=== PATIENT | female | born 1940 | race Caucasian/White ===

== ENCOUNTER → 2016-06-21 | Outpatient (CLI) | payer MEDICARE ==
[~2016-06-21] MED LIST: BETA-CAROTENE; BETA10003 PO; BROM500T2 PO; CALC600T21 PO; COPPER; COQ; DIGE1CAP2 PO; FISH1000; FOLI800T; GARLPOW; L-THEANINE; LIDO1OIN2 TOP; LISI5TAB; MAGN200T PO; MAGN250T; OXAZ15CA PO; OXAZ15CA2; PANTOTHENIC ACID; POTA540T PO; POTA99TA; PRO-BIOTIC; SELE100T6; SYST1SOL OU; VITA100C7; VITA100T17; VITA200016 PO; VITA500C24 PO; VITA50TA12; VITAMIN B COMPLE1; VITAMIN B6; VITAMIN D50000 UNT; VITAMIN E; [UNRECOGNIZED DRUG - OTHER]; [UNRECOGNIZED DRUG - OTHER]
--- NOTE | 2016-06-21 12:19 | REPMRS ---
Patient History The patient states she had a clinical breast exam in 06/2016. Patient has history of skin cancer at age 58. Family history of colorectal cancer in mother at age 62. Digital Woman Screen Mammo: June 21, 2016 - Exam #: [id number] Bilateral CC and MLO view(s) were taken. Technologist: Lea Kaminski, Technologist Prior study comparison: June 20, 2014, digital woman screen mammo performed at [facility]. June 19, 2013, digital woman screen mammo performed at [facility]. FINDINGS: The breast tissue is heterogeneously dense. This may lower the sensitivity of mammography. There has been no change in the appearance of the mammogram from the prior studies. There is a moderate amount of residual fibroglandular tissue which is fairly symmetric. There is no interval development of dominant mass, areas of architectural distortion, or clustered microcalcification typical of malignancy. ASSESSMENT: BI-RADS/ACR category 1 mammogram. Negative. Recommendation Routine screening mammogram in 1 year (for women over age 40). This mammogram was interpreted with the aid of an FDA-approved computer-aided dectection system. Electronically Signed By: Alton Farrell MD 06/21/16 [id number]
== END ==
LOC: M WHC 11:41
PROVIDERS: ATTEND Nurse Practitioner Women's Health
DX: Z01.419 Encounter for gynecological examination (general) (routine) without abnormal findings (principal); Z12.31 Encounter for screening mammogram for malignant neoplasm of breast; Z12.12 Encounter for screening for malignant neoplasm of rectum; Z80.0 Family history of malignant neoplasm of digestive organs
CPT/HCPCS: 82270; G0101; G0202

== ENCOUNTER → 2016-08-12 | Outpatient (CLI) | payer MEDICARE ==
--- NOTE | 2016-08-12 13:40 | REP ---
LUMBAR SPINE, FIVE VIEWS: HISTORY: Back pain. There is no acute fracture or subluxation. The lumbar intervertebral discs are decreased in height. Vacuum phenomenon is present at the L4-5 and L5-S1 levels. These findings are consistent with disc degeneration. Osteophytes are present in L2 through L5. There is narrowing of the L1-2 through L5-S1 facet joints. A laminectomy defect is present at the L4-5 level. The bony structure is osteopenic. IMPRESSION: Degenerative change as described above. Signed by Sohail Felipe MD 08/12/2016 01:44 P
== END ==
LOC: M SMT 12:00
PROVIDERS: ATTEND Family Medicine
DX: M25.78 Osteophyte, vertebrae (principal); M51.26 Other intervertebral disc displacement, lumbar region; M51.27 Other intervertebral disc displacement, lumbosacral region; W19.XXXA Unspecified fall, initial encounter; Y92.9 Unspecified place or not applicable; Y93.9 Activity, unspecified; Y99.8 Other external cause status; X58.XXXA Exposure to other specified factors, initial encounter
CPT/HCPCS: 72110; G0463

== ENCOUNTER → 2016-08-16 | Outpatient (REF) | payer MEDICARE | LOC: M SFHCPLAZ 08:45 | PROVIDERS: ATTEND Family Medicine | DX: S39.92XA Unspecified injury of lower back, initial encounter (principal); I11.9 Hypertensive heart disease without heart failure; E03.9 Hypothyroidism, unspecified; E78.2 Mixed hyperlipidemia; E55.9 Vitamin D deficiency, unspecified ==

== ENCOUNTER → 2016-08-16 | Outpatient (REF) | payer MEDICARE | LOC: M LAB REF 13:29 | PROVIDERS: ATTEND Orthopaedic Surgery | DX: M54.5 Low back pain (principal) ==

== ENCOUNTER → 2017-03-16 | Outpatient (REF) | payer MEDICARE ==
[~2017-03-16] MED LIST changes: -CALC600T21 PO; +CALC600T60 PO; -OXAZ15CA PO; +OXAZ15CA4 PO
[2017-03-16 20:35] LABS: MICROSCOPIC INDICATED? MAN YES (NO)
[2017-03-16 20:52] LABS: BACTERIA, URINE NONE SEEN; HYALINE CAST, URINE NONE SEEN /lpf (0-1); MICROSCOPIC EXAM PERFORMED; SQUAMOUS EPITHELIAL CELL URINE SMALL AMOUNT /hpf (SMALL AMT); TRANSITIONAL EPI CELLS, URINE SMALL AMOUNT /hpf
== END ==
LOC: M SFHCADAM 09:35
PROVIDERS: ATTEND Family Medicine
DX: R35.0 Frequency of micturition (principal)

== ENCOUNTER → 2017-03-22 | Outpatient (CLI) | payer MEDICARE ==
--- NOTE | 2017-03-22 14:38 | REP ---
THYROID ULTRASOUND: Real-time sonographic evaluation of thyroid performed. Right lobe measures 4.6 x 1.5 x 1.4 cm and left lobe 4.2 x 1.1 x 1.0 cm. In the right mid aspect is a hyperechoic nodular area which appears to have increased since prior studies measuring 1.2 x 0.9 x 0.8 cm. A complex cystic and solid nodule in the lower pole of the right lobe is essentially unchanged, measuring 1.1 x 0.6 x 0.8 cm. In the mid left lobe is a complex cystic and solid nodule which is unchanged 6 x 5 x 5 mm. IMPRESSION: Increased size of somewhat hyperechoic heterogeneous nodule mid right lobe when compared to prior studies. Maximum diameter 1.2 cm. Consider FNA. Right lower pole nodule and left mid lobe nodule are unchanged. Signed by Alton Farrell MD 03/23/2017 11:29 A
== END ==
LOC: M RAD 12:20
PROVIDERS: ATTEND Family Medicine
DX: E04.2 Nontoxic multinodular goiter (principal)

== ENCOUNTER → 2017-04-06 | Outpatient (CLI) | payer MEDICARE ==
[~2017-04-06] MED LIST changes: +ISOVUE-370 76% 100ML VIAL (Q9967) As Ordered ONE
--- NOTE | 2017-04-06 09:24 | REP ---
CT NECK WITH CONTRAST: HISTORY: Right thyroid nodule. CONTRAST: Isovue 370, 75 mL. The naso-, janie-, and hypopharynx, larynx and subglottic trachea are normal in appearance. The salivary glands are normal in size and density. An 8 mm hypodense nodule is present in the inferior right thyroid lobe. Small hypodensities 2-5 mm in size are present in the right and left thyroid lobes. The thyroid gland is normal in size. Small lymph nodes less than 1 cm in size are present in the internal jugular chains, posterior triangles, and submandibular areas. Atherosclerotic calcification is present at the right carotid bifurcation. Degenerative change is present in the cervical spine. The lung apices are clear. Postsurgical change is present in the nasal passage. Minimal mucosal thickening is present in the maxillary sinuses. IMPRESSION: There are several small hypodense nodules 2-8 mm in size in the thyroid gland. Signed by Sohail Felipe MD 04/06/2017 09:34 A
== END ==
LOC: M RAD 08:15
PROVIDERS: ATTEND Family Medicine
DX: E04.1 Nontoxic single thyroid nodule (principal)
CPT/HCPCS: 70491; Q9967

== ENCOUNTER → 2017-05-17 | Outpatient (REF) | payer MEDICARE | LOC: M LAB REF 09:26 | DX: E04.1 Nontoxic single thyroid nodule (principal) | CPT/HCPCS: 88313 ==

== ENCOUNTER → 2017-06-14 | Outpatient (REF) | payer MEDICARE ==
[2017-06-14 19:26] LABS: INR 0.94; PROTHROMBIN TIME 12.7 SECONDS (12.4-14.5)
[2017-06-14 19:27] LABS: PARTIAL THROMBOPLASTIN TIME 30.3 SECONDS (26.8-37.9)
[2017-06-14 19:32] LABS: ALBUMIN 4.1 GM/DL (3.2-5.2); ALBUMIN/GLOBULIN RATIO 1.41 (1.00-1.93); ALKALINE PHOSPHATASE 73 U/L (45-117); ALT/SGPT 25 U/L (12-78); ANION GAP 7 MEQ/L (8-16); AST/SGOT 17 U/L (7-37); BILIRUBIN,TOTAL 1.1 MG/DL (0.2-1.0); BLOOD UREA NITROGEN 21 MG/DL (7-18); CALCIUM LEVEL 9.2 MG/DL (8.8-10.2); CARBON DIOXIDE LEVEL 31 MEQ/L (21-32); CHLORIDE LEVEL 104 MEQ/L (98-107); CREATININE FOR GFR 0.79 MG/DL (0.55-1.30); GLOMERULAR FILTRATION RATE > 60.0 (>39); GLUCOSE, FASTING 97 MG/DL (70-100); POTASSIUM SERUM 4.1 MEQ/L (3.5-5.1); SODIUM LEVEL 142 MEQ/L (136-145)
[2017-06-14 19:41] LABS: HEMATOCRIT 47.6 % (36.0-47.0); MEAN CORPUSCULAR HEMOGLOBIN 29.4 pg (27.0-33.0); MEAN CORPUSCULAR HGB CONC 31.5 g/dl (32.0-36.5); MEAN CORPUSCULAR VOLUME 93.2 fl (80.0-96.0); PLATELET COUNT, AUTOMATED 205 10^3/uL (150-450); RED BLOOD COUNT 5.11 10^6/uL (4.00-5.40); RED CELL DISTRIBUTION WIDTH 13.4 % (11.5-14.5); WHITE BLOOD COUNT 6.3 10^3/uL (4.0-10.0)
== END ==
LOC: M SFHCADAM 11:26
DX: Z01.818 Encounter for other preprocedural examination (principal); E04.1 Nontoxic single thyroid nodule; I11.9 Hypertensive heart disease without heart failure
CPT/HCPCS: 80053

== ENCOUNTER → 2017-06-14 | Outpatient (CLI) | payer MEDICARE | LOC: M ADAMS 11:44 | DX: Z01.818 Encounter for other preprocedural examination (principal); I11.9 Hypertensive heart disease without heart failure; M85.88 Other specified disorders of bone density and structure, other site; M51.34 Other intervertebral disc degeneration, thoracic region; M51.36 Other intervertebral disc degeneration, lumbar region; E04.1 Nontoxic single thyroid nodule | CPT/HCPCS: 71046; 80053 ==

== ENCOUNTER → 2017-06-22 | Outpatient (CLI) | payer MEDICARE | LOC: M WHC 11:11 | DX: Z12.31 Encounter for screening mammogram for malignant neoplasm of breast (principal) | CPT/HCPCS: 77067 ==

== ENCOUNTER 2017-06-23 06:24 | Day surgery (SDC) | payer MEDICARE ==
[2017-06-23] MEDS ORDERED: LR 1,000 ML IV (06:45)
[2017-06-23] MEDS ORDERED: PROPOFOL 200 MG/20 ML VIAL As Ordered (07:07)
[2017-06-23] MEDS ORDERED: ROCURONIUM BROMIDE 50 MG/5 ML VIAL As Ordered (07:07)
[2017-06-23] MEDS ORDERED: LIDOCAINE 2% INJ 100 MG/5 ML SDV (FOR ANES.) As Ordered (07:07)
[2017-06-23] MEDS ORDERED: MIDAZOLAM INJ 2 MG/2 ML VIAL (J2250) As Ordered (07:08)
[2017-06-23] MEDS ORDERED: fentaNYL 250 MCG/5 ML INJECTION (J3010) As Ordered (07:08)
[2017-06-23] MEDS ORDERED: LIDOCAINE W/EPINEPHRINE 1% 20ML VIAL As Ordered (07:13)
[2017-06-23] MEDS ORDERED: HYDROmorphone HCL 2 MG/ML 1ML VIAL (J1170) As Ordered (07:55)
[2017-06-23] MEDS ORDERED: METOCLOPRAMIDE INJ 10MG/2ML VIAL (J2765) As Ordered (08:49)
[2017-06-23] MEDS ORDERED: ONDANSETRON 4MG/2ML VIAL (J2405) As Ordered (08:49)
[2017-06-23] MEDS ORDERED: diphenhydrAMINE INJ 50MG/ML VIAL (J1200) As Ordered (08:49)
[2017-06-23] MEDS ORDERED: KETOROLAC 60 MG/2 ML VIAL (J1885) As Ordered (08:55)
[2017-06-23] MEDS: BACITRACIN OINT 30GM As Ordered (09:08)
[2017-06-23] MEDS: LR 1,000 ML IV (09:45)
[2017-06-23] MEDS ORDERED: LABETALOL HCL 100 MG/20 ML VIAL As Ordered (09:59)
[2017-06-23] MEDS ORDERED: ACETAMINOPHEN 500 MG TAB PO (10:00)
[2017-06-23] MEDS ORDERED: ACETAMINOPHEN TAB 650MG DOSE (2X325MG) PO (10:00)
[2017-06-23] MEDS ORDERED: ONDANSETRON 4MG/2ML VIAL (J2405) IV (10:00)
[2017-06-23] MEDS ORDERED: IBUPROFEN 200 MG TAB PO (10:00)
[2017-06-23] MEDS ORDERED: HYDROmorphone HCL 1 MG/ML SYRINGE (J1170) IV (10:00)
[2017-06-23] MEDS: LABETALOL HCL 100 MG/20 ML VIAL IV ×2 (10:07→10:30)
== END 2017-06-24 15:44 | disposition home or self-care (01) ==
LOC: M SDC 06:24 → M MS4PR 14:08
DX: E04.1 Nontoxic single thyroid nodule (principal); I11.9 Hypertensive heart disease without heart failure; K29.70 Gastritis, unspecified, without bleeding; E78.2 Mixed hyperlipidemia; K20.9 Esophagitis, unspecified; E05.90 Thyrotoxicosis, unspecified without thyrotoxic crisis or storm; K21.9 Gastro-esophageal reflux disease without esophagitis; K58.9 Irritable bowel syndrome, unspecified; K76.0 Fatty (change of) liver, not elsewhere classified; M48.07 Spinal stenosis, lumbosacral region; E03.9 Hypothyroidism, unspecified; M12.9 Arthropathy, unspecified; F41.9 Anxiety disorder, unspecified; F43.10 Post-traumatic stress disorder, unspecified; Z88.1 Allergy status to other antibiotic agents; Z88.2 Allergy status to sulfonamides; Z88.5 Allergy status to narcotic agent; Z88.4 Allergy status to anesthetic agent; Z88.8 Allergy status to other drugs, medicaments and biological substances; Z91.018 Allergy to other foods; Z91.040 Latex allergy status; Z91.048 Other nonmedicinal substance allergy status; Z79.899 Other long term (current) drug therapy; Z86.718 Personal history of other venous thrombosis and embolism; Z96.1 Presence of intraocular lens; Z90.710 Acquired absence of both cervix and uterus; Z87.442 Personal history of urinary calculi; Z78.0 Asymptomatic menopausal state; Z85.828 Personal history of other malignant neoplasm of skin
CPT/HCPCS: 60220

== ENCOUNTER → 2017-07-07 | Outpatient (REF) | payer MEDICARE ==
[2017-07-07 13:42] LABS: ANION GAP 7 MEQ/L (8-16); BLOOD UREA NITROGEN 21 MG/DL (7-18); CALCIUM LEVEL 8.8 MG/DL (8.8-10.2); CARBON DIOXIDE LEVEL 32 MEQ/L (21-32); CHLORIDE LEVEL 104 MEQ/L (98-107); FREE T4 0.83 NG/DL (0.76-1.46); GLOMERULAR FILTRATION RATE > 60.0 (>39); GLUCOSE, FASTING 79 MG/DL (70-100); POTASSIUM SERUM 3.8 MEQ/L (3.5-5.1); SODIUM LEVEL 143 MEQ/L (136-145)
== END ==
LOC: M LABDRAW1 11:52
DX: E04.2 Nontoxic multinodular goiter (principal); I11.9 Hypertensive heart disease without heart failure
CPT/HCPCS: 84443

== ENCOUNTER → 2017-08-22 | Outpatient (CLI) | payer MEDICARE ==
[2017-08-22 18:26] LABS: FREE T4 0.77 NG/DL (0.76-1.46)
== END ==
LOC: M SMT 14:33
DX: E03.9 Hypothyroidism, unspecified (principal)
CPT/HCPCS: 84443

== ENCOUNTER 2017-09-30 08:42 | Day surgery (SDC) | payer MEDICARE ==
[~2017-09-30 08:42] MED LIST changes: -BETA-CAROTENE; -BETA10003 PO; -BROM500T2 PO; -CALC600T60 PO; -COPPER; -COQ; -DIGE1CAP2 PO; -FISH1000; -FOLI800T; -GARLPOW; -ISOVUE-370 76% 100ML VIAL (Q9967) As Ordered ONE; -L-THEANINE; -LIDO1OIN2 TOP; -LISI5TAB; -MAGN200T PO; -MAGN250T; -OXAZ15CA2; -OXAZ15CA4 PO; -PANTOTHENIC ACID; -POTA540T PO; -POTA99TA; -PRO-BIOTIC; +PROPOFOL 500 MG/50 ML VIAL As Ordered; -SELE100T6; -SYST1SOL OU; -VITA100C7; -VITA100T17; -VITA200016 PO; -VITA500C24 PO; -VITA50TA12; -VITAMIN B COMPLE1; -VITAMIN B6; -VITAMIN D50000 UNT; -VITAMIN E; -[UNRECOGNIZED DRUG - OTHER]; -[UNRECOGNIZED DRUG - OTHER]
[2017-09-30] MEDS ORDERED: LIDOCAINE 2% INJ 100 MG/5 ML SDV (FOR ANES.) As Ordered (08:57)
[2017-09-30] MEDS: NS 1,000 ML IV (09:00)
[2017-09-30] MEDS ORDERED: hydrALAZINE INJ 20 MG/ML VIAL As Ordered (10:05)
== END 2017-09-30 11:05 | disposition home or self-care (01) ==
LOC: M OPP 08:42
DX: Z12.11 Encounter for screening for malignant neoplasm of colon (principal); K64.8 Other hemorrhoids; K57.30 Diverticulosis of large intestine without perforation or abscess without bleeding; Z86.010 Personal history of colon polyps; K22.70 Barrett's esophagus without dysplasia; K29.70 Gastritis, unspecified, without bleeding; R12 Heartburn; E03.9 Hypothyroidism, unspecified; K76.0 Fatty (change of) liver, not elsewhere classified; R03.0 Elevated blood-pressure reading, without diagnosis of hypertension; M48.061 Spinal stenosis, lumbar region without neurogenic claudication; K74.60 Unspecified cirrhosis of liver; F41.9 Anxiety disorder, unspecified; E78.00 Pure hypercholesterolemia, unspecified; Z88.0 Allergy status to penicillin; Z88.5 Allergy status to narcotic agent; Z88.8 Allergy status to other drugs, medicaments and biological substances; Z91.048 Other nonmedicinal substance allergy status; Z91.041 Radiographic dye allergy status; Z86.718 Personal history of other venous thrombosis and embolism; Z85.828 Personal history of other malignant neoplasm of skin
CPT/HCPCS: G0105

== ENCOUNTER → 2017-10-17 | Outpatient (CLI) | payer MEDICARE ==
[2017-10-17 13:45] LABS: FREE T4 0.81 NG/DL (0.76-1.46)
== END ==
LOC: M SMT 10:37
DX: E03.9 Hypothyroidism, unspecified (principal)
CPT/HCPCS: 84443

== ENCOUNTER → 2017-10-21 | Outpatient (CLI) | payer MEDICARE | LOC: M ADAMS 15:51 | DX: T18.108A Unspecified foreign body in esophagus causing other injury, initial encounter (principal) | CPT/HCPCS: 74018 ==

== ENCOUNTER → 2017-11-11 | Outpatient (CLI) | payer MEDICARE | LOC: M SMT 14:04 | DX: T18.2XXD Foreign body in stomach, subsequent encounter (principal) | CPT/HCPCS: 74019 ==

== ENCOUNTER → 2018-01-20 | Outpatient (CLI) | payer MEDICARE ==
[2018-01-20 19:54] LABS: FREE T4 1.02 NG/DL (0.76-1.46)
== END ==
LOC: M SMT 15:13
DX: E03.9 Hypothyroidism, unspecified (principal)
CPT/HCPCS: 84443

== ENCOUNTER → 2018-03-22 | Outpatient (CLI) | payer MEDICARE ==
[2018-03-22 13:35] LABS: HEMATOCRIT 46.7 % (36.0-47.0); MEAN CORPUSCULAR HEMOGLOBIN 29.7 pg (27.0-33.0); MEAN CORPUSCULAR HGB CONC 32.1 g/dl (32.0-36.5); MEAN CORPUSCULAR VOLUME 92.5 fl (80.0-96.0); PLATELET COUNT, AUTOMATED 222 10^3/uL (150-450); RED BLOOD COUNT 5.05 10^6/uL (4.00-5.40); RED CELL DISTRIBUTION WIDTH 14.3 % (11.5-14.5); WHITE BLOOD COUNT 6.5 10^3/uL (4.0-10.0)
[2018-03-22 13:41] LABS: ALBUMIN 3.7 GM/DL (3.2-5.2); ALBUMIN/GLOBULIN RATIO 1.16 (1.00-1.93); ALKALINE PHOSPHATASE 73 U/L (45-117); ALT/SGPT 22 U/L (12-78); ANION GAP 6 MEQ/L (8-16); AST/SGOT 19 U/L (7-37); BILIRUBIN,TOTAL 1.4 MG/DL (0.2-1.0); BLOOD UREA NITROGEN 22 MG/DL (7-18); CALCIUM LEVEL 8.9 MG/DL (8.8-10.2); CARBON DIOXIDE LEVEL 32 MEQ/L (21-32); CHLORIDE LEVEL 103 MEQ/L (98-107); CHOLESTEROL LEVEL 238 MG/DL (<200); CHOLESTEROL RISK RATIO 3.606 (<5); CREATININE FOR GFR 0.87 MG/DL (0.55-1.30); FREE T4 0.98 NG/DL (0.76-1.46); GLOMERULAR FILTRATION RATE > 60.0 (>32); GLUCOSE, FASTING 87 MG/DL (70-100); HDL CHOLESTEROL 66 MG/DL (>40); LDL CHOLESTEROL 148 MG/DL (<100); NON-HDL-C 172 MG/DL; POTASSIUM SERUM 4.3 MEQ/L (3.5-5.1); SODIUM LEVEL 141 MEQ/L (136-145); TOTAL PROTEIN 6.9 GM/DL (6.4-8.2); TRIGLYCERIDES LEVEL 121 MG/DL (<150)
[2018-03-22 14:01] LABS: TOTAL 25(OH) VITAMIN D 73.6 NG/ML (30.0-100.0)
== END ==
LOC: M SMT 09:34
DX: F41.9 Anxiety disorder, unspecified (principal); E11.9 Type 2 diabetes mellitus without complications; M81.0 Age-related osteoporosis without current pathological fracture
CPT/HCPCS: 84443

== ENCOUNTER → 2018-04-25 | Outpatient (REF) | payer MEDICARE ==
[~2018-04-25] MED LIST changes: +ACET500T15 PO; +ACID1CAP PO; +BETA-CAROTENE; +BETA10003 PO; +BROM500T2 PO; +CALC500T49 PO; +CALC600T60 PO; +CALCTAB93; +CALCTAB93 PO; +COPPER; +COQ; +DIGE1CAP2 PO; +FISH1000; +FOLI800T; +GARLPOW; +GRAP100C PO; +IBUP200C25 PO; +L-THEANINE; +LIDO1OIN2 TOP; +LISI5TAB; +MAGN1TAB25 PO; +MAGN200T PO; +MAGN250T; +OXAZ15CA2; +OXAZ15CA4 PO; +PANTOTHENIC ACID; +POTA540T PO; +POTA99TA; +PRO-BIOTIC; -PROPOFOL 500 MG/50 ML VIAL As Ordered; +SELE100T6; +SYST1SOL OU; +VITA100C7; +VITA100T17; +VITA200016 PO; +VITA500C24 PO; +VITA50TA12; +VITAMIN B COMPLE1; +VITAMIN B6; +VITAMIN D50000 UNT; +VITAMIN E; +VITAPOW PB; +[UNRECOGNIZED DRUG - CODE] PO; +[UNRECOGNIZED DRUG - OTHER]; +[UNRECOGNIZED DRUG - OTHER]; +[UNRECOGNIZED DRUG - OTHER]
[2018-04-25 13:42] LABS: CORTISOL AM 19.6 UG/DL (4.3-22.4); FREE T3 2.5 PG/ML (2.2-4.0); FREE T4 0.95 NG/DL (0.76-1.46); THYROID STIMULATING HORMONE 5.01 uIU/ML (0.358-3.740)
[2018-05-01 08:06] LABS: T3 REVERSE 16.7 ng/dL (9.2-24.1)
== END ==
LOC: M SFHCADAM 08:53
PROVIDERS: ATTEND Family Medicine
DX: E03.9 Hypothyroidism, unspecified (principal); L65.9 Nonscarring hair loss, unspecified
CPT/HCPCS: 82533; 84439; 84443; 84481; 84482; 84630; G0463

== ENCOUNTER → 2018-05-20 | Outpatient (CLI) | payer MEDICARE ==
--- NOTE | 2018-05-20 20:09 | REP ---
Left tib-fib series: Four views. History: Left lower leg contusion. Findings: Four views of the left tibia and fibula demonstrate normal bones, joints, and soft tissues. No fracture or subluxation is seen. Impression: Negative left tib fib radiographs. Electronically Signed by Kalen Nash MD 05/20/2018 08:00 P
== END ==
LOC: M WUC 17:04
PROVIDERS: ATTEND Physician Assistant
DX: S80.12XA Contusion of left lower leg, initial encounter (principal); Y92.89 Other specified places as the place of occurrence of the external cause; Y93.89 Activity, other specified; X58.XXXA Exposure to other specified factors, initial encounter; Y99.8 Other external cause status

== ENCOUNTER → 2018-07-06 | Outpatient (CLI) | payer MEDICARE ==
[2018-07-06 18:46] LABS: THYROID STIMULATING HORMONE 2.27 uIU/ML (0.358-3.740)
== END ==
LOC: M SMT 14:16
PROVIDERS: ATTEND Family Medicine
DX: E03.9 Hypothyroidism, unspecified (principal)

== ENCOUNTER → 2018-08-14 | Outpatient (CLI) | payer MEDICARE ==
[~2018-08-14] MED LIST changes: -MAGN1TAB25 PO; +MAGN1TAB26 PO
[2018-08-14 14:06] LABS: BLOOD UREA NITROGEN 19 MG/DL (7-18); CREATININE FOR GFR 0.91 MG/DL (0.55-1.30); GLOMERULAR FILTRATION RATE > 60.0 (>32)
== END ==
LOC: M SMT 11:32
PROVIDERS: ATTEND Surgery
DX: R07.89 Other chest pain (principal)

== ENCOUNTER → 2018-08-16 | Outpatient (CLI) | payer MEDICARE ==
[~2018-08-16] MED LIST changes: +ISOVUE-370 76% 100ML VIAL (Q9967) As Ordered ONE
--- NOTE | 2018-08-17 08:10 | REP ---
CT of the chest with IV contrast, CT pulmonary angiography protocol: The patient has an allergy and was premedicated with Benadryl. Comparison is 05/03/2016. There are no emboli in the pulmonary trunk or central pulmonary arteries. There are no emboli in the pulmonary lobe or segment branches. There are no infiltrates. There are no pleural effusions. There are no masses or nodules. There is no mediastinal, hilar or axillary lymph node enlargement. The thoracic aorta is unremarkable. Cardiac size is normal. There is no pericardial effusion. The visualized upper abdominal contents are unremarkable except for surgical clips in the gallbladder fossa. Impression: There are no pulmonary emboli. Cholecystectomy. Otherwise, essentially negative CT study of the chest. Electronically Signed by Alton Hood MD 08/17/2018 08:02 A
== END ==
LOC: M RAD 15:39
PROVIDERS: ATTEND Surgery
DX: R07.89 Other chest pain (principal); Z90.49 Acquired absence of other specified parts of digestive tract
CPT/HCPCS: 71260; Q9967

== ENCOUNTER → 2018-10-23 | Outpatient (CLI) | payer MEDICARE ==
[~2018-10-23] MED LIST changes: -ISOVUE-370 76% 100ML VIAL (Q9967) As Ordered ONE
[2018-10-23 13:46] LABS: HEMATOCRIT 47.3 % (36.0-47.0); MEAN CORPUSCULAR HEMOGLOBIN 30.7 pg (27.0-33.0); MEAN CORPUSCULAR HGB CONC 31.7 g/dl (32.0-36.5); MEAN CORPUSCULAR VOLUME 96.7 fl (80.0-96.0); PLATELET COUNT, AUTOMATED 213 10^3/uL (150-450); RED BLOOD COUNT 4.89 10^6/uL (4.00-5.40); WHITE BLOOD COUNT 6.2 10^3/uL (4.0-10.0)
[2018-10-23 13:54] LABS: ALBUMIN 3.7 GM/DL (3.2-5.2); ALT/SGPT 26 U/L (12-78); BILIRUBIN,TOTAL 0.9 MG/DL (0.2-1.0); BLOOD UREA NITROGEN 20 MG/DL (7-18); CALCIUM LEVEL 9.2 MG/DL (8.8-10.2); CARBON DIOXIDE LEVEL 32 MEQ/L (21-32); CHLORIDE LEVEL 106 MEQ/L (98-107); CHOLESTEROL LEVEL 222 MG/DL (<200); CHOLESTEROL RISK RATIO 3.171 (<5); CREATININE FOR GFR 0.95 MG/DL (0.55-1.30); FREE T4 0.87 NG/DL (0.76-1.46); GLOMERULAR FILTRATION RATE > 60.0 (>32); GLUCOSE, FASTING 83 MG/DL (70-100); HDL CHOLESTEROL 70 MG/DL (>40); LDL CHOLESTEROL 129 MG/DL (<100); MAGNESIUM LEVEL 2.4 MG/DL (1.8-2.4); NON-HDL-C 152 MG/DL; POTASSIUM SERUM 4.5 MEQ/L (3.5-5.1); SODIUM LEVEL 143 MEQ/L (136-145); TOTAL PROTEIN 6.7 GM/DL (6.4-8.2); TRIGLYCERIDES LEVEL 117 MG/DL (<150)
== END ==
LOC: M SMT 08:35
PROVIDERS: ATTEND Family Medicine
DX: I11.9 Hypertensive heart disease without heart failure (principal); K21.9 Gastro-esophageal reflux disease without esophagitis; E03.9 Hypothyroidism, unspecified; E78.2 Mixed hyperlipidemia

== ENCOUNTER → 2019-01-07 | Outpatient (CLI) | payer MEDICARE ==
--- NOTE | 2019-01-11 10:31 | SLEEPCENT ---
DATE OF STUDY: 01/07/2019 ORDERED BY: Mindy Carpio Nocturnal polysomnography was performed for evaluation of sleep physiology in this patient with a history of excessive somnolence and nonrestorative sleep. 7 hours and 40 minutes of data were reviewed. There were 330 minutes of sleep identified. Sleep latency was mildly prolonged at 33 minutes. Rapid eye movement (REM) latency was prolonged at 180 minutes. Sleep architecture was fairly good. There were 3 REM cycles. Overall sleep efficiency was 72.7%. The patient's electrocardiogram showed a sinus rhythm with small complexes and average heart rate of 60 beats per minute. Electroencephalogram (EEG) showed normal waveforms for awake and sleep. There were only 7 respiratory events identified of 10 seconds in duration or greater for an apnea-hypopnea index within normal limits at 1.3. Arousals from respiratory events when arousals from snoring were included occurred 1.5 times per hour with some limb activity. Limb movement arousal index was borderline at 5.1. There were no oxygen desaturations below 90%. Snoring was noted throughout the study. IMPRESSION: Normal nocturnal polysomnography with snoring.
== END ==
LOC: M SLEEP 20:00
PROVIDERS: ATTEND Nurse Practitioner Family
DX: R06.83 Snoring (principal)

== ENCOUNTER → 2019-03-14 | Outpatient (CLI) | payer MEDICARE ==
[2019-03-14 13:52] LABS: HEMATOCRIT 47.8 % (36.0-47.0); MEAN CORPUSCULAR HEMOGLOBIN 30.5 pg (27.0-33.0); MEAN CORPUSCULAR HGB CONC 31.4 g/dl (32.0-36.5); MEAN CORPUSCULAR VOLUME 97.4 fl (80.0-96.0); PLATELET COUNT, AUTOMATED 222 10^3/uL (150-450); RED BLOOD COUNT 4.91 10^6/uL (4.00-5.40); WHITE BLOOD COUNT 6.1 10^3/uL (4.0-10.0)
[2019-03-14 14:08] LABS: ALBUMIN 3.7 GM/DL (3.2-5.2); ALT/SGPT 24 U/L (12-78); BLOOD UREA NITROGEN 17 MG/DL (7-18); CALCIUM LEVEL 9.1 MG/DL (8.8-10.2); CARBON DIOXIDE LEVEL 32 MEQ/L (21-32); CHLORIDE LEVEL 104 MEQ/L (98-107); CHOLESTEROL LEVEL 199 MG/DL (<200); CHOLESTEROL RISK RATIO 2.926 (<5); CREATININE FOR GFR 0.88 MG/DL (0.55-1.30); FREE T4 0.88 NG/DL (0.76-1.46); GLOMERULAR FILTRATION RATE > 60.0 (>32); GLUCOSE, FASTING 88 MG/DL (70-100); HDL CHOLESTEROL 68 MG/DL (>40); LDL CHOLESTEROL 114 MG/DL (<100); NON-HDL-C 131 MG/DL; POTASSIUM SERUM 4.6 MEQ/L (3.5-5.1); SODIUM LEVEL 141 MEQ/L (136-145); TOTAL PROTEIN 6.6 GM/DL (6.4-8.2); TRIGLYCERIDES LEVEL 83 MG/DL (<150)
== END ==
LOC: M SMT 08:07
PROVIDERS: ATTEND Family Medicine
DX: I11.9 Hypertensive heart disease without heart failure (principal); E03.9 Hypothyroidism, unspecified; E78.2 Mixed hyperlipidemia; K21.9 Gastro-esophageal reflux disease without esophagitis

== ENCOUNTER 2019-06-22 15:30 | Emergency (ER) | payer MEDICARE ==
[~2019-06-22] VITALS: Ht 154.9 cm; Wt 48.6 kg
--- NOTE | 2019-06-22 16:03 | REP ---
CT brain without contrast: History: Dizziness. Trauma. No comparison brain CT. 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 No intraorbital abnormality is seen. Bony calvarium is intact. No skull fractures seen. No significant scalp hematoma is appreciated. There is mild vascular calcification in the distal internal carotids. On soft tissue window settings, there is mild generalized atrophy. Periventricular white matter low density is seen consistent with small vessel atherosclerotic change. There is no evidence of intracranial hemorrhage. No extra-axial fluid collection is seen. No mass, infarct, or midline shift is seen. Impression: Mild diffuse atrophy and vascular calcification. Small vessel changes. No acute intracranial abnormality. Electronically Signed by Kalen Nash MD 06/22/2019 03:54 P
[2019-06-22] MEDS ORDERED: LABETALOL HCL 100 MG/20 ML VIAL IV STA (16:26)
[2019-06-22 17:06] VITALS: BP 194/118
[2019-06-22 17:15] LABS: BASO # 0.1 10^3/uL (0.0-0.2); BASO % 0.9 % (0.0-1.0); EOS # 0.2 10^3/uL (0.0-0.5); EOS % 2.8 % (0.0-3.0); HEMATOCRIT 43.6 % (36.0-47.0); HEMOGLOBIN 14.3 g/dl (12.0-15.5); LYMPH # 1.6 10^3/uL (1.5-5.0); LYMPH % 23.9 % (24.0-44.0); MEAN CORPUSCULAR HEMOGLOBIN 31.1 pg (27.0-33.0); MEAN CORPUSCULAR HGB CONC 32.8 g/dl (32.0-36.5); MEAN CORPUSCULAR VOLUME 94.8 fl (80.0-96.0); MONO # 0.6 10^3/uL (0.0-0.8); MONO % 9.3 % (0.0-5.0); NEUTROPHILS # 4.3 10^3/uL (1.5-8.5); NEUTROPHILS % 62.8 % (36.0-66.0); PLATELET COUNT, AUTOMATED 208 10^3/uL (150-450); WHITE BLOOD COUNT 6.9 10^3/uL (4.0-10.0)
[2019-06-22] MEDS ORDERED: LEVO50TA5 PO (17:22)
[2019-06-22] MEDS ORDERED: LIDO5OIN19 (17:22)
[2019-06-22 17:51] LABS: BLOOD UREA NITROGEN 18 MG/DL (7-18); CALCIUM LEVEL 9.3 MG/DL (8.8-10.2); CARBON DIOXIDE LEVEL 30 MEQ/L (21-32); CHLORIDE LEVEL 103 MEQ/L (98-107); CK-MB VALUE MASS 1.3 NG/ML (<3.6); CPK CREATINE PHOSPHOKINASE 80 U/L (26-192); CREATININE FOR GFR 0.84 MG/DL (0.55-1.30); ETHYL ALCOHOL (ETHANOL) < 0.003 % (0.000-0.010); GLOMERULAR FILTRATION RATE > 60.0 (>32); GLUCOSE, FASTING 94 MG/DL (70-100); MAGNESIUM LEVEL 2.1 MG/DL (1.8-2.4); MB/CK RELATIVE INDEX 1.62 (< OR =4); POTASSIUM SERUM 4.2 MEQ/L (3.5-5.1); SODIUM LEVEL 143 MEQ/L (136-145); TROPONIN I < 0.02 NG/ML (< 0.10)
[2019-06-22 18:00] LABS: INR 1.07; PROTHROMBIN TIME 13.6 SECONDS (11.8-14.0)
[2019-06-22 18:06] LABS: AMPHETAMINES LEVEL URINE NEGATIVE (NEGATIVE); BARBITURATES URINE NEGATIVE (NEGATIVE); BENZODIAZEPINES URINE NEGATIVE (NEGATIVE); CANNABINOIDS URINE NEGATIVE (NEGATIVE); COCAINE METABOLITE URINE NEGATIVE (NEGATIVE); METHADONE URINE NEGATIVE (NEGATIVE); OPIATES URINE NEGATIVE (NEGATIVE); PHENCYCLIDINE URINE NEGATIVE (NEGATIVE)
--- NOTE | 2019-06-22 18:18 | ECGEPIP ---
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
[2019-06-22 18:25] VITALS: BP 150/94
[2019-06-22] MEDS ORDERED: MECL1TAB31 PO (18:26)
== END 2019-06-22 18:42 | disposition home or self-care (01) ==
LOC: M ED 15:30
DX: R42 Dizziness and giddiness (principal); R00.1 Bradycardia, unspecified; R19.7 Diarrhea, unspecified; E11.9 Type 2 diabetes mellitus without complications; K21.9 Gastro-esophageal reflux disease without esophagitis; K76.0 Fatty (change of) liver, not elsewhere classified; Z85.828 Personal history of other malignant neoplasm of skin; Z88.0 Allergy status to penicillin; Z88.1 Allergy status to other antibiotic agents; Z88.5 Allergy status to narcotic agent; Z88.8 Allergy status to other drugs, medicaments and biological substances; Z91.041 Radiographic dye allergy status; Z79.899 Other long term (current) drug therapy
CPT/HCPCS: 70450; 80048; 80307; 81001; 82550; 82553; 83735; 84439; 84443; 84484; 85025; 85610; 93005; 93041; 94760; 96374; 99285; G0480

== ENCOUNTER → 2019-06-26 | Outpatient (REF) | payer MEDICARE ==
[~2019-06-26] MED LIST changes: +LEVO50TA5 PO; +LIDO5OIN19; +MECL1TAB31 PO
[2019-06-26 19:24] LABS: FOLATE 15.8 NG/ML (>5.4)
== END ==
LOC: M SFHCADAM 15:21
PROVIDERS: ATTEND Family Medicine
DX: R42 Dizziness and giddiness (principal)

== ENCOUNTER → 2019-07-23 | Outpatient (CLI) | payer MEDICARE ==
--- NOTE | 2019-07-23 12:27 | REPMRS ---
Patient History The patient states she had a clinical breast exam in 07/2019. Patient has history of skin cancer starting at age 68. Family history of colorectal cancer at age 62 in mother. 3D TOMOSYNTHESIS WAS PERFORMED. [facility] Digital Woman Screen Mammo: July 23, 2019 - Exam #: [id number] Bilateral CC and MLO view(s) were taken. Technologist: Lea Kaminski, Technologist Prior study comparison: June 22, 2017, digital woman screen mammo performed at [facility]. March 09, 2017, left breast digital mammo diagnostic unilateral, performed at [facility]. FINDINGS: The breast tissue is heterogeneously dense. This may lower the sensitivity of mammography. There has been no change in the appearance of the mammogram from the prior studies. There is a moderate amount of residual fibroglandular tissue which is fairly symmetric. There is no interval development of dominant mass, areas of architectural distortion, or clustered microcalcification typical of malignancy. Assessment: BI-RADS/ACR category 1 mammogram. Negative Mammogram. Recommendation Routine screening mammogram in 1 year (for women over age 40). This mammogram was interpreted with the aid of an FDA-approved computer-aided dectection system. Electronically Signed By: Alton Farrell MD 07/23/19 [id number]
== END ==
LOC: M WHC 11:31
PROVIDERS: ATTEND Nurse Practitioner Women's Health
DX: Z12.31 Encounter for screening mammogram for malignant neoplasm of breast (principal); Z85.828 Personal history of other malignant neoplasm of skin; Z80.0 Family history of malignant neoplasm of digestive organs
CPT/HCPCS: 77063; 77067; G0463

== ENCOUNTER → 2019-08-31 | Outpatient (REF) | payer MEDICARE ==
[2019-08-31 14:07] LABS: ALBUMIN 3.6 GM/DL (3.2-5.2); ALT/SGPT 22 U/L (12-78); BLOOD UREA NITROGEN 18 MG/DL (7-18); CALCIUM LEVEL 9.1 MG/DL (8.8-10.2); CARBON DIOXIDE LEVEL 29 MEQ/L (21-32); CHLORIDE LEVEL 105 MEQ/L (98-107); CHOLESTEROL LEVEL 229 MG/DL (<200); CHOLESTEROL RISK RATIO 3.754 (<5); CREATININE FOR GFR 0.79 MG/DL (0.55-1.30); FREE T4 0.92 NG/DL (0.76-1.46); GLOMERULAR FILTRATION RATE > 60.0 (>32); GLUCOSE, FASTING 93 MG/DL (70-100); HDL CHOLESTEROL 61 MG/DL (>40); LDL CHOLESTEROL 137 MG/DL (<100); MAGNESIUM LEVEL 2.3 MG/DL (1.8-2.4); NON-HDL-C 168 MG/DL; POTASSIUM SERUM 4.2 MEQ/L (3.5-5.1); SODIUM LEVEL 140 MEQ/L (136-145); TOTAL PROTEIN 6.7 GM/DL (6.4-8.2); TRIGLYCERIDES LEVEL 157 MG/DL (<150)
== END ==
LOC: M PLALAB 09:15
PROVIDERS: ATTEND Family Medicine
DX: I11.9 Hypertensive heart disease without heart failure (principal); E03.9 Hypothyroidism, unspecified; E78.2 Mixed hyperlipidemia

== ENCOUNTER → 2019-09-07 | Outpatient (REF) | payer MEDICARE ==
[2019-09-07 13:14] LABS: APPEARANCE, URINE CLEAR (CLEAR); BACTERIA, URINE AUTO NEGATIVE (NEGATIVE); BILIRUBIN, URINE AUTO NEGATIVE (NEGATIVE); BLOOD, URINE BLOOD NEGATIVE (NEGATIVE); COLOR, URINE STRAW (YELLOW); GLUCOSE, URINE (UA) AUTO NEGATIVE (NEGATIVE); KETONE, URINE AUTO NEGATIVE (NEGATIVE); LEUKOCYTE ESTERASE, URINE AUTO NEGATIVE (NEGATIVE); NITRITE, URINE AUTO NEGATIVE (NEGATIVE); PROTEIN, URINE AUTO NEGATIVE (NEGATIVE); RBC, URINE AUTO 1 /HPF (0-3); SPECIFIC GRAVITY URINE AUTO 1.004 (1.002-1.035); SQUAMOUS EPITHELIAL CELL UR AU 0 /HPF (0-6); UROBILINOGEN, URINE AUTO 0.2 mg/dL (0.0-2.0); WBC, URINE AUTO 0 /HPF (0-3)
== END ==
LOC: M SFHCADAM 10:08
PROVIDERS: ATTEND Family Medicine
DX: R30.0 Dysuria (principal)
CPT/HCPCS: 81001; 87086; G0463

== ENCOUNTER → 2019-11-15 | Outpatient (REF) | payer MEDICARE | LOC: M LAB REF 17:04 | PROVIDERS: ATTEND Nurse Practitioner Family | DX: R89.5 Abnormal microbiological findings in specimens from other organs, systems and tissues (principal) ==

== ENCOUNTER → 2019-11-16 | Outpatient (REF) | payer MEDICARE ==
[2019-11-16 11:39] LABS: FREE T4 0.91 NG/DL (0.76-1.46); THYROID STIMULATING HORMONE 4.89 uIU/ML (0.358-3.740)
== END ==
LOC: M PLALAB 08:29
PROVIDERS: ATTEND Family Medicine
DX: E03.9 Hypothyroidism, unspecified (principal)

== ENCOUNTER → 2019-11-19 | Outpatient (REF) | payer MEDICARE | LOC: M LAB REF 16:46 | PROVIDERS: ATTEND Nurse Practitioner Family | DX: J32.9 Chronic sinusitis, unspecified (principal) ==

== ENCOUNTER → 2019-11-20 | Outpatient (CLI) | payer MEDICARE ==
--- NOTE | 2019-11-21 00:58 | REP ---
REASON: Atraumatic right-sided rib pain. No priors for comparison. The accompanying frontal view of the chest has been compared to the previous chest examination of 07/04/2017. The frontal view of the chest is unchanged from the prior exam. There is cardiomegaly and thoracic aortic tortuosity, status quo. No acute patchy parenchymal opacities or pleural effusions have developed. The lung medina are stable. Four views of the right ribs show no acute fracture or destructive osseous lesion. Electronically Signed by Aunj Blevins DO 11/21/2019 12:38 P
== END ==
LOC: M ADAMS 14:31
PROVIDERS: ATTEND Family Medicine
DX: I51.7 Cardiomegaly (principal); R07.81 Pleurodynia

== ENCOUNTER → 2019-12-21 | Outpatient (REF) | payer MEDICARE ==
[2020-02-17 23:32] LABS: FREE T4 0.97 NG/DL (0.76-1.46); THYROID STIMULATING HORMONE 5.79 uIU/ML (0.358-3.740)
== END ==
LOC: M SFHCADAM 14:38
PROVIDERS: ATTEND Family Medicine
DX: E03.9 Hypothyroidism, unspecified (principal)

== ENCOUNTER → 2020-01-07 | Outpatient (CLI) | payer MEDICARE ==
--- NOTE | 2020-01-30 10:51 | DEXA ---
AP SPINE L1 - L4 1.055 -1.1 0.7 LT FEMUR TOTAL 0.687 -2.5 -0.4 LT NECK 0.615 -3.0 -0.8 RT FEMUR TOTAL 0.685 -2.6 -0.5 RT NECK 0.593 -3.2 -1.0 TOTAL BODY TOTAL OTHER COMMENTS: There is low bone density of the spine. There is osteoporosis of the hips. The increased density of the spine does represent a significant change. The decreased density of the left hip does not represent significant change. The decreased density of the right hip does represent significant change. The decreased density of the right hip does represent a significant change. The density of the spine has decreased 0.5% since the initial exam on 12/17/2005. The decreased 4.4% since the most recent exam on 01/04/2018. The density of the left hip has decreased 14.7% since the initial exam on 12/17/2005. The density of the left hip has decreased 1.7% since the most recent exam on 01/04/2018. The density of the right hip has decreased 14.2% since the initial exam on 12/17/2005. The density of the right hip has decreased 4.9% since the most recent exam on 01/04/2018. FOLLOW-UP: Recommendation for the next bone density exam: 2 years. JONNY
== END ==
LOC: M WHC 15:03
PROVIDERS: ATTEND Nurse Practitioner Women's Health
DX: N95.1 Menopausal and female climacteric states (principal); M85.851 Other specified disorders of bone density and structure, right thigh; M85.852 Other specified disorders of bone density and structure, left thigh

== ENCOUNTER → 2020-01-31 | Outpatient (CLI) | payer MEDICARE ==
--- NOTE | 2020-02-08 09:30 | REP ---
MAXILLOFACIAL CT STUDY WITHOUT CONTRAST: HISTORY: Chronic pansinusitis. COMPARISON: Imaging from 06/22/19 and 04/06/17. A comparison maxillofacial CT study is from 02/25/06. FINDINGS: Mastoid aeration is normal and symmetric bilaterally. The sphenoid and frontal sinuses are clear bilaterally. There are metallic sutures in the anterior wall of the left maxillary sinus medially and laterally, unchanged from the 2006 prior study consistent with previous surgery. The right inferior turbinate appears to have been resected. Widely patent nasoenteral windows are seen inferolaterally on both sides. The left maxillary sinus is essentially clear. There is some mucosal thickening along the lateral aspect of the right maxillary sinus and there is chronic bony sinus wall thickening on the right with some postoperative or post traumatic irregularity of the anterior inferior wall on the right, unchanged. No bony destructive lesion is seen. There is mild mucosal thickening along the infundibulum on both sides. The middle turbinates and the left inferior nasal turbinate appear intact and unremarkable. The nasoethmoid recesses are clear. No intraorbital abnormalities or intracranial abnormality is appreciated. IMPRESSION: Post surgical changes in the maxillaries bilaterally. Mild mucosal changes are seen in the right maxillary sinus. MTDD
== END ==
LOC: M RAD 10:23
PROVIDERS: ATTEND Otolaryngology
DX: J32.4 Chronic pansinusitis (principal)

== ENCOUNTER → 2020-03-14 | Outpatient (CLI) | payer MEDICARE ==
[2020-03-14 13:24] LABS: HEMATOCRIT 47.8 % (36.0-47.0); HEMOGLOBIN 15.1 g/dl (12.0-15.5); MEAN CORPUSCULAR HEMOGLOBIN 30.3 pg (27.0-33.0); MEAN CORPUSCULAR HGB CONC 31.6 g/dl (32.0-36.5); PLATELET COUNT, AUTOMATED 230 10^3/uL (150-450); RED BLOOD COUNT 4.98 10^6/uL (4.00-5.40); WHITE BLOOD COUNT 5.7 10^3/uL (4.0-10.0)
[2020-03-14 14:06] LABS: ALBUMIN 3.7 GM/DL (3.2-5.2); ALT/SGPT 20 U/L (12-78); BILIRUBIN,TOTAL 0.9 MG/DL (0.2-1.0); BLOOD UREA NITROGEN 18 MG/DL (7-18); CALCIUM LEVEL 9.1 MG/DL (8.8-10.2); CARBON DIOXIDE LEVEL 31 MEQ/L (21-32); CHLORIDE LEVEL 106 MEQ/L (98-107); CHOLESTEROL LEVEL 219 MG/DL (<200); CHOLESTEROL RISK RATIO 3.268 (<5); CREATININE FOR GFR 0.85 MG/DL (0.55-1.30); FREE T4 1.02 NG/DL (0.76-1.46); GLOMERULAR FILTRATION RATE > 60.0 (>32); GLUCOSE, FASTING 86 MG/DL (70-100); HDL CHOLESTEROL 67 MG/DL (>40); LDL CHOLESTEROL 126 MG/DL (<100); NON-HDL-C 152 MG/DL; POTASSIUM SERUM 4.1 MEQ/L (3.5-5.1); SODIUM LEVEL 142 MEQ/L (136-145); TOTAL PROTEIN 6.6 GM/DL (6.4-8.2); TRIGLYCERIDES LEVEL 129 MG/DL (<150)
== END ==
LOC: M PLALAB 08:52
PROVIDERS: ATTEND Family Medicine
DX: I11.9 Hypertensive heart disease without heart failure (principal); E78.5 Hyperlipidemia, unspecified

== ENCOUNTER → 2020-05-29 | Outpatient (CLI) | payer MEDICARE ==
--- NOTE | 2020-05-29 11:48 | REP ---
INDICATION: N63.20 LEFT BREAST LUMP/N64.4 LEFT BREAST PAIN; N3.20 LEFT BREAST LUMP/N64.4 LEFT BREAST PAIN. COMPARISON: 07/23/2019 as well as other prior exams. TECHNIQUE: MLO and CC views left breast performed with tomosynthesis and spot compression views for palpable lump at 12 o'clock. Focused left breast ultrasound also performed. FINDINGS: There is mild to moderate fibroglandular tissue in the left breast unchanged. No new mass or architectural distortion is seen. There are no suspicious clusters of microcalcifications. Ultrasound left breast at the site of the palpable lump demonstrates no cystic or solid nodule. The Volpara volumetric breast density pattern is C. IMPRESSION: BIRADS/ACR category 1, negative. No evidence of mass or clustered microcalcifications by mammography. There is no mammographic or sonographic evidence of a mass at the site of the reported painful lump at 12 o'clock. Clinical correlation and follow-up recommended. A negative mammogram and ultrasound should not deter biopsy if there is a clinically suspicious palpable mass present. Patient is due for right breast mammogram in July of 2020. This patient's Tyrer-Cuzick lifetime breast cancer risk assessment score is 0.9%. This mammogram was interpreted with the aid of an FDA-approved computer-aided detection system. The patient states she had a clinical breast exam in May 2020. The patient letter being requested is M2. RECOMMENDATION: Recommend follow-up right breast mammogram July 2020. <Electronically signed by Alton Farrell > 05/29/20 [id number]
== END ==
LOC: M WHC 09:55
PROVIDERS: ATTEND Nurse Practitioner Family
DX: N63.21 Unspecified lump in the left breast, upper outer quadrant (principal)
CPT/HCPCS: 76642; 77065; G0279

== ENCOUNTER → 2020-07-25 | Outpatient (CLI) | payer MEDICARE ==
--- NOTE | 2020-07-25 15:59 | REPMRS ---
Patient History The patient states she had a clinical breast exam in 07/2020 Family history of colorectal cancer at age 62 in mother. Digital Woman Screen Mammo: July 25, 2020 - Exam #: [id number] CC and MLO view(s) were taken of the right breast. Technologist: Fannie Wade, Technologist Prior study comparison: July 23, 2019, bilateral digital woman screen mammo performed at [facility]. July 24, 2018, right breast digital mammo screening bilat, performed at [facility]. June 22, 2017, digital woman screen mammo performed at [facility]. FINDINGS: There are scattered fibroglandular densities. There has been no change in the appearance of the right breast parenchyma in the interval since the prior examination. No mass, architectural distortion, or microcalcific grouping has developed. No suspicious finding. 3-D tomosynthesis shows no additional findings. Assessment: BI-RADS/ACR category 2 mammogram. Benign Findings. Recommendation Routine screening mammogram of the right breast in 1 year. This patient's [facility] Lifetime Breast Cancer RIsk is estimated at 0.9 %. This mammogram was interpreted with the aid of an FDA-approved computer-aided dectection system. Electronically Signed By: Brian Nash MD 07/25/20 [id number]
== END ==
LOC: M WHC 14:29
PROVIDERS: ATTEND Nurse Practitioner Women's Health
DX: Z12.31 Encounter for screening mammogram for malignant neoplasm of breast (principal); N64.89 Other specified disorders of breast; Z80.0 Family history of malignant neoplasm of digestive organs
CPT/HCPCS: 77063; 77067; G0463

== ENCOUNTER → 2020-09-19 | Outpatient (REF) | payer MEDICARE ==
[2020-09-19 11:19] LABS: HEMATOCRIT 46.2 % (36.0-47.0); HEMOGLOBIN 14.6 g/dl (12.0-15.5); MEAN CORPUSCULAR HEMOGLOBIN 30.4 pg (27.0-33.0); MEAN CORPUSCULAR HGB CONC 31.6 g/dl (32.0-36.5); MEAN CORPUSCULAR VOLUME 96.3 fl (80.0-96.0); PLATELET COUNT, AUTOMATED 233 10^3/uL (150-450); WHITE BLOOD COUNT 6.5 10^3/uL (4.0-10.0)
[2020-09-19 12:03] LABS: ALBUMIN 3.7 GM/DL (3.2-5.2); ALT/SGPT 21 U/L (12-78); BILIRUBIN,TOTAL 1.1 MG/DL (0.2-1.0); BLOOD UREA NITROGEN 21 MG/DL (7-18); CALCIUM LEVEL 9.6 MG/DL (8.8-10.2); CARBON DIOXIDE LEVEL 31 MEQ/L (21-32); CHLORIDE LEVEL 105 MEQ/L (98-107); CHOLESTEROL LEVEL 225 MG/DL (<200); CREATININE FOR GFR 0.75 MG/DL (0.55-1.30); FREE T4 0.88 NG/DL (0.76-1.46); GLOMERULAR FILTRATION RATE > 60.0 (>32); GLUCOSE, FASTING 87 MG/DL (70-100); HDL CHOLESTEROL 69 MG/DL (>40); LDL CHOLESTEROL 131 MG/DL (<100); NON-HDL-C 156 MG/DL; POTASSIUM SERUM 4.1 MEQ/L (3.5-5.1); SODIUM LEVEL 141 MEQ/L (136-145); TOTAL 25(OH) VITAMIN D 51.3 NG/ML (30.0-100.0); TOTAL PROTEIN 6.6 GM/DL (6.4-8.2); TRIGLYCERIDES LEVEL 124 MG/DL (<150)
== END ==
LOC: M PLALAB 08:27
PROVIDERS: ATTEND Physician Assistant
DX: K58.0 Irritable bowel syndrome with diarrhea (principal); I11.9 Hypertensive heart disease without heart failure; K75.81 Nonalcoholic steatohepatitis (NASH); E03.9 Hypothyroidism, unspecified; E78.2 Mixed hyperlipidemia; M81.0 Age-related osteoporosis without current pathological fracture

== ENCOUNTER → 2020-11-26 | Outpatient (CLI) | payer MEDICARE ==
[2020-11-26 11:48] LABS: FREE T4 0.83 NG/DL (0.76-1.46); THYROID STIMULATING HORMONE 3.69 uIU/ML (0.358-3.740)
== END ==
LOC: M PLALAB 08:16
PROVIDERS: ATTEND Family Medicine
DX: E03.9 Hypothyroidism, unspecified (principal)

== ENCOUNTER → 2021-02-12 | Outpatient (REF) | payer MEDICARE | LOC: M SFHCADAM 11:53 | PROVIDERS: ATTEND Family Medicine | DX: R30.9 Painful micturition, unspecified (principal) | CPT/HCPCS: 87086; G0463 ==

== ENCOUNTER → 2021-03-11 | Outpatient (CLI) | payer MEDICARE ==
[2021-03-11 10:38] LABS: HEMATOCRIT 46.3 % (36.0-47.0); HEMOGLOBIN 14.9 g/dl (12.0-15.5); MEAN CORPUSCULAR HEMOGLOBIN 30.7 pg (27.0-33.0); MEAN CORPUSCULAR HGB CONC 32.2 g/dl (32.0-36.5); MEAN CORPUSCULAR VOLUME 95.3 fl (80.0-96.0); PLATELET COUNT, AUTOMATED 236 10^3/uL (150-450); RED BLOOD COUNT 4.86 10^6/uL (4.00-5.40); WHITE BLOOD COUNT 6.6 10^3/uL (4.0-10.0)
[2021-03-11 11:12] LABS: ALBUMIN 3.5 GM/DL (3.2-5.2); ALT/SGPT 21 U/L (12-78); BILIRUBIN,TOTAL 1.1 MG/DL (0.2-1.0); BLOOD UREA NITROGEN 14 MG/DL (7-18); CALCIUM LEVEL 9.1 MG/DL (8.8-10.2); CARBON DIOXIDE LEVEL 32 MEQ/L (21-32); CHLORIDE LEVEL 106 MEQ/L (98-107); CHOLESTEROL LEVEL 245 MG/DL (<200); CHOLESTEROL RISK RATIO 4.016 (<5); CREATININE FOR GFR 0.91 MG/DL (0.55-1.30); FREE T4 1.06 NG/DL (0.76-1.46); GLOMERULAR FILTRATION RATE > 60.0 (>32); GLUCOSE, FASTING 94 MG/DL (70-100); HDL CHOLESTEROL 61 MG/DL (>40); LDL CHOLESTEROL 157 MG/DL (<100); NON-HDL-C 184 MG/DL; POTASSIUM SERUM 4.2 MEQ/L (3.5-5.1); SODIUM LEVEL 141 MEQ/L (136-145); TOTAL PROTEIN 6.7 GM/DL (6.4-8.2); TRIGLYCERIDES LEVEL 137 MG/DL (<150)
== END ==
LOC: M PLALAB 08:27
PROVIDERS: ATTEND Family Medicine
DX: I11.9 Hypertensive heart disease without heart failure (principal); E78.2 Mixed hyperlipidemia; E03.9 Hypothyroidism, unspecified; K75.81 Nonalcoholic steatohepatitis (NASH)

== ENCOUNTER → 2021-05-15 | Outpatient (CLI) | payer MEDICARE ==
[2021-05-15 10:56] LABS: FREE T4 0.88 NG/DL (0.76-1.46); THYROID STIMULATING HORMONE 3.95 uIU/ML (0.358-3.740)
== END ==
LOC: M PLALAB 08:38
PROVIDERS: ATTEND Family Medicine
DX: E03.9 Hypothyroidism, unspecified (principal)

== ENCOUNTER → 2021-06-03 | Outpatient (CLI) | payer MEDICARE | LOC: M RAD 16:10 | PROVIDERS: ATTEND Family Medicine | DX: M27.9 Disease of jaws, unspecified (principal) ==

== ENCOUNTER → 2021-07-01 | Outpatient (CLI) | payer MEDICARE | LOC: M ADAMS 13:36 | PROVIDERS: ATTEND Family Medicine | DX: M94.272 Chondromalacia, left ankle and joints of left foot (principal); M19.072 Primary osteoarthritis, left ankle and foot ==

== ENCOUNTER → 2021-07-16 | Outpatient (CLI) | payer MEDICARE ==
[2021-07-16 10:48] LABS: FREE T4 0.82 NG/DL (0.76-1.46); THYROID STIMULATING HORMONE 5.94 uIU/ML (0.358-3.740)
== END ==
LOC: M PLALAB 08:51
PROVIDERS: ATTEND Family Medicine
DX: E03.9 Hypothyroidism, unspecified (principal)

== ENCOUNTER → 2021-07-22 | Outpatient (CLI) | payer MEDICARE ==
[~2021-07-22] MED LIST changes: +ISOVUE-300 61% 50ML VIAL As Ordered ONE; +LIDOCAINE 1% MDV 20ML VIAL As Ordered ONE; +methylPREDNISolone SUSP 40MG/ML 1ML VIAL (DEPO MEDROL) As Ordered ONE
== END ==
LOC: M RADPRO 11:17
PROVIDERS: ATTEND Physician Assistant Surgical
DX: M19.072 Primary osteoarthritis, left ankle and foot (principal)
CPT/HCPCS: 20600; 77002; J1030; Q9967

== ENCOUNTER → 2021-08-11 | Outpatient (REF) | payer MEDICARE ==
[~2021-08-11] MED LIST changes: -ISOVUE-300 61% 50ML VIAL As Ordered ONE; -LIDOCAINE 1% MDV 20ML VIAL As Ordered ONE; -methylPREDNISolone SUSP 40MG/ML 1ML VIAL (DEPO MEDROL) As Ordered ONE
== END ==
LOC: M SFHCPLAZ 13:09
PROVIDERS: ATTEND Internal Medicine Infectious Disease
DX: Z22.321 Carrier or suspected carrier of Methicillin susceptible Staphylococcus aureus (principal)

== ENCOUNTER → 2021-08-28 | Outpatient (CLI) | payer MEDICARE | LOC: M RAD 16:49 | PROVIDERS: ATTEND Physician Assistant | DX: R93.89 Abnormal findings on diagnostic imaging of other specified body structures (principal) ==

== ENCOUNTER → 2021-09-14 | Outpatient (REF) | payer MEDICARE | LOC: M SFHCPLAZ 11:49 | PROVIDERS: ATTEND Internal Medicine Infectious Disease | DX: Z22.321 Carrier or suspected carrier of Methicillin susceptible Staphylococcus aureus (principal) ==

== ENCOUNTER → 2021-10-02 | Outpatient (CLI) | payer MEDICARE ==
[2021-10-02 11:23] LABS: HEMATOCRIT 44.2 % (36.0-47.0); HEMOGLOBIN 13.8 g/dl (12.0-15.5); MEAN CORPUSCULAR HEMOGLOBIN 29.7 pg (27.0-33.0); MEAN CORPUSCULAR HGB CONC 31.2 g/dl (32.0-36.5); MEAN CORPUSCULAR VOLUME 95.3 fl (80.0-96.0); PLATELET COUNT, AUTOMATED 221 10^3/uL (150-450); RED BLOOD COUNT 4.64 10^6/uL (4.00-5.40); WHITE BLOOD COUNT 6.8 10^3/uL (4.0-10.0)
[2021-10-02 11:41] LABS: ALBUMIN 3.5 GM/DL (3.2-5.2); ALT/SGPT 18 U/L (12-78); BILIRUBIN,TOTAL 0.9 MG/DL (0.2-1.0); BLOOD UREA NITROGEN 22 MG/DL (7-18); CALCIUM LEVEL 8.6 MG/DL (8.8-10.2); CARBON DIOXIDE LEVEL 32 MEQ/L (21-32); CHLORIDE LEVEL 107 MEQ/L (98-107); CHOLESTEROL LEVEL 187 MG/DL (<200); CHOLESTEROL RISK RATIO 2.968 (<5); CREATININE FOR GFR 0.76 MG/DL (0.55-1.30); GLOMERULAR FILTRATION RATE > 60.0 (>32); GLUCOSE, FASTING 87 MG/DL (70-100); HDL CHOLESTEROL 63 MG/DL (>40); LDL CHOLESTEROL 99 MG/DL (<100); NON-HDL-C 124 MG/DL; POTASSIUM SERUM 3.9 MEQ/L (3.5-5.1); SODIUM LEVEL 141 MEQ/L (136-145); TOTAL PROTEIN 6.4 GM/DL (6.4-8.2); TRIGLYCERIDES LEVEL 126 MG/DL (<150)
== END ==
LOC: M PLALAB 08:26
PROVIDERS: ATTEND Family Medicine
DX: M27.9 Disease of jaws, unspecified (principal); I11.9 Hypertensive heart disease without heart failure; R07.89 Other chest pain; E78.2 Mixed hyperlipidemia; E03.9 Hypothyroidism, unspecified

== ENCOUNTER → 2021-10-20 | Outpatient (CLI) | payer MEDICARE ==
[2021-10-20 10:58] LABS: FREE T4 0.85 NG/DL (0.76-1.46); THYROID STIMULATING HORMONE 2.56 uIU/ML (0.358-3.740)
== END ==
LOC: M PLALAB 08:31
PROVIDERS: ATTEND Family Medicine
DX: E03.9 Hypothyroidism, unspecified (principal)

== ENCOUNTER → 2021-12-25 | Outpatient (CLI) | payer MEDICARE ==
[2021-12-25 11:32] LABS: FREE T4 0.77 NG/DL (0.76-1.46); THYROID STIMULATING HORMONE 2.76 uIU/ML (0.358-3.740)
== END ==
LOC: M PLALAB 08:21
PROVIDERS: ATTEND Physician Assistant
DX: E03.9 Hypothyroidism, unspecified (principal)

== ENCOUNTER → 2022-03-25 | Outpatient (CLI) | payer MEDICARE ==
[2022-03-25 11:15] LABS: HEMOGLOBIN 14.4 g/dl (12.0-15.5); MEAN CORPUSCULAR HEMOGLOBIN 30.1 pg (27.0-33.0); MEAN CORPUSCULAR HGB CONC 31.3 g/dl (32.0-36.5); MEAN CORPUSCULAR VOLUME 96.2 fl (80.0-96.0); PLATELET COUNT, AUTOMATED 235 10^3/uL (150-450); RED BLOOD COUNT 4.78 10^6/uL (4.00-5.40); WHITE BLOOD COUNT 6.6 10^3/uL (4.0-10.0)
[2022-03-25 12:39] LABS: ALBUMIN 3.9 G/DL (3.2-5.2); ALT/SGPT 17 U/L (7.0-40); BILIRUBIN,TOTAL 1.1 MG/DL (0.3-1.2); BLOOD UREA NITROGEN 21 MG/DL (9-23); CALCIUM LEVEL 10.3 MG/DL (8.3-10.6); CARBON DIOXIDE LEVEL 30 MMOL/L (20-31); CHLORIDE LEVEL 103 MMOL/L (98-107); CHOLESTEROL LEVEL 196 MG/DL (<200); CREATININE FOR GFR 0.77 MG/DL (0.55-1.30); FREE T4 1.15 NG/DL (0.89-1.76); GLOMERULAR FILTRATION RATE > 60.0 (>32); GLUCOSE, FASTING 95 MG/DL (74-106); HDL CHOLESTEROL 57.5 MG/DL (>40); LDL CHOLESTEROL 111.9 MG/DL (<100); NON-HDL-C 139 MG/DL; POTASSIUM SERUM 3.9 MMOL/L (3.5-5.1); SODIUM LEVEL 144 MMOL/L (136-145); THYROID STIMULATING HORMONE 2.237 uIU/ML (0.55-4.78); TOTAL PROTEIN 6.6 G/DL (5.7-8.2); TRIGLYCERIDES LEVEL 133 MG/DL (<150)
== END ==
LOC: M PLALAB 08:02
PROVIDERS: ATTEND Family Medicine
DX: E03.9 Hypothyroidism, unspecified (principal); I11.9 Hypertensive heart disease without heart failure; Z86.73 Personal history of transient ischemic attack (TIA), and cerebral infarction without residual deficits; Z79.890 Hormone replacement therapy

== ENCOUNTER → 2022-04-12 | Outpatient (CLI) | payer MEDICARE | LOC: M WHC 10:35 | PROVIDERS: ATTEND Nurse Practitioner Family | DX: Z12.31 Encounter for screening mammogram for malignant neoplasm of breast (principal) ==

== ENCOUNTER → 2022-04-29 | Outpatient (CLI) | payer MEDICARE | LOC: M ADAMS 15:12 | PROVIDERS: ATTEND Family Medicine | DX: M47.814 Spondylosis without myelopathy or radiculopathy, thoracic region (principal) ==

== ENCOUNTER → 2022-08-03 | Outpatient (REF) | payer MEDICARE ==
[2022-08-03 17:21] LABS: ALBUMIN 3.8 G/DL (3.2-5.2); ALKALINE PHOSPHATASE 72 U/L (46-116); ALT/SGPT 15 U/L (7.0-40); AST/SGOT 17 U/L (<34); BILIRUBIN,TOTAL 0.8 MG/DL (0.3-1.2); BLOOD UREA NITROGEN 23 MG/DL (9-23); CALCIUM LEVEL 9.6 MG/DL (8.3-10.6); CARBON DIOXIDE LEVEL 32 MMOL/L (20-31); CHLORIDE LEVEL 104 MMOL/L (98-107); CHOLESTEROL LEVEL 204 MG/DL (<200); CHOLESTEROL RISK RATIO 3.19 (<5); CREATININE FOR GFR 0.68 MG/DL (0.55-1.30); FREE T4 0.98 NG/DL (0.89-1.76); GLOMERULAR FILTRATION RATE > 60.0 (>32); GLUCOSE, FASTING 84 MG/DL (74-106); HDL CHOLESTEROL 63.8 MG/DL (>40); LDL CHOLESTEROL 107.8 MG/DL (<100); NON-HDL-C 140.2 MG/DL; POTASSIUM SERUM 4.2 MMOL/L (3.5-5.1); SODIUM LEVEL 142 MMOL/L (136-145); TOTAL PROTEIN 6.7 G/DL (5.7-8.2); TRIGLYCERIDES LEVEL 162 MG/DL (<150)
[2022-08-03 17:22] LABS: THYROID STIMULATING HORMONE 2.648 uIU/ML (0.55-4.78)
[2022-08-03 17:34] LABS: BASO # 0.1 10^3/uL (0.0-0.2); BASO % 1.3 % (0.0-1.0); EOS # 0.3 10^3/uL (0.0-0.5); EOS % 3.8 % (0.0-3.0); HEMATOCRIT 44.7 % (36.0-47.0); LYMPH # 2.2 10^3/uL (1.5-5.0); LYMPH % 31.1 % (24.0-44.0); MEAN CORPUSCULAR HEMOGLOBIN 30.3 pg (27.0-33.0); MEAN CORPUSCULAR HGB CONC 31.3 g/dl (32.0-36.5); MEAN CORPUSCULAR VOLUME 96.8 fl (80.0-96.0); MONO # 0.6 10^3/uL (0.0-0.8); NEUTROPHILS # 3.8 10^3/uL (1.5-8.5); NEUTROPHILS % 54.5 % (36.0-66.0); PLATELET COUNT, AUTOMATED 240 10^3/uL (150-450); RED BLOOD COUNT 4.62 10^6/uL (4.00-5.40); WHITE BLOOD COUNT 6.9 10^3/uL (4.0-10.0)
== END ==
LOC: M SFHCADAM 11:36
PROVIDERS: ATTEND Family Medicine
DX: R59.0 Localized enlarged lymph nodes (principal); E03.9 Hypothyroidism, unspecified; I11.9 Hypertensive heart disease without heart failure

== ENCOUNTER → 2022-08-13 | Outpatient (CLI) | payer MEDICARE | LOC: M PLAIMG 15:40 | PROVIDERS: ATTEND Family Medicine | DX: M25.462 Effusion, left knee (principal) ==

== ENCOUNTER 2022-08-24 10:50 | Emergency (ER) | payer MEDICARE ==
[~2022-08-24] VITALS: Ht 154.9 cm; Wt 52.1 kg
[2022-08-24] MEDS ORDERED: NIFE1TAB52 (12:02)
[2022-08-24] MEDS ORDERED: ARMO1TAB PO (12:02)
[2022-08-24] MEDS ORDERED: KRIL1000 PO (12:02)
[2022-08-24] MEDS ORDERED: PEPE50CA PO (12:02)
[2022-08-24 13:26] LABS: BASO # 0.1 10^3/uL (0.0-0.2); BASO % 0.7 % (0.0-1.0); EOS # 0.2 10^3/uL (0.0-0.5); EOS % 1.8 % (0.0-3.0); HEMATOCRIT 41.2 % (36.0-47.0); LYMPH % 20.7 % (24.0-44.0); MEAN CORPUSCULAR HEMOGLOBIN 30.2 pg (27.0-33.0); MEAN CORPUSCULAR HGB CONC 31.6 g/dl (32.0-36.5); MEAN CORPUSCULAR VOLUME 95.6 fl (80.0-96.0); MONO # 0.8 10^3/uL (0.0-0.8); MONO % 7.9 % (2.0-8.0); NEUTROPHILS # 6.6 10^3/uL (1.5-8.5); NEUTROPHILS % 68.6 % (36.0-66.0); PLATELET COUNT, AUTOMATED 216 10^3/uL (150-450); RED BLOOD COUNT 4.31 10^6/uL (4.00-5.40); WHITE BLOOD COUNT 9.7 10^3/uL (4.0-10.0)
[2022-08-24 13:34] LABS: INR 0.94; PROTHROMBIN TIME 12.8 SECONDS (12.5-14.5)
[2022-08-24 13:35] LABS: PARTIAL THROMBOPLASTIN TIME 27.2 SECONDS (24.8-34.2)
[2022-08-24 13:47] LABS: ALBUMIN 3.8 G/DL (3.2-5.2); ALKALINE PHOSPHATASE 68 U/L (46-116); ALT/SGPT 11 U/L (7.0-40); AST/SGOT 17 U/L (<34); BILIRUBIN,DIRECT 0.2 MG/DL (<0.4); BILIRUBIN,TOTAL 0.9 MG/DL (0.3-1.2); BLOOD UREA NITROGEN 19 MG/DL (9-23); CALCIUM LEVEL 8.8 MG/DL (8.3-10.6); CARBON DIOXIDE LEVEL 28 MMOL/L (20-31); CHLORIDE LEVEL 106 MMOL/L (98-107); CREATININE FOR GFR 0.69 MG/DL (0.55-1.30); GLOMERULAR FILTRATION RATE > 60.0 (>32); GLUCOSE, FASTING 88 MG/DL (74-106); SODIUM LEVEL 140 MMOL/L (136-145); TOTAL PROTEIN 6.5 G/DL (5.7-8.2)
[2022-08-24 16:22] VITALS: BP 124/72
== END 2022-08-24 16:45 | disposition home or self-care (01) ==
LOC: M ED 10:50
DX: I61.9 Nontraumatic intracerebral hemorrhage, unspecified (principal); M79.605 Pain in left leg; R00.1 Bradycardia, unspecified; E78.5 Hyperlipidemia, unspecified; I10 Essential (primary) hypertension; F41.9 Anxiety disorder, unspecified; K58.9 Irritable bowel syndrome, unspecified; K21.9 Gastro-esophageal reflux disease without esophagitis; M48.061 Spinal stenosis, lumbar region without neurogenic claudication; Z88.1 Allergy status to other antibiotic agents; Z88.5 Allergy status to narcotic agent; Z88.8 Allergy status to other drugs, medicaments and biological substances; Z91.048 Other nonmedicinal substance allergy status; Z91.041 Radiographic dye allergy status; Z79.811 Long term (current) use of aromatase inhibitors; Z79.899 Other long term (current) drug therapy

== ENCOUNTER → 2022-11-02 | Outpatient (CLI) | payer MEDICARE ==
[~2022-11-02] MED LIST changes: +ARMO1TAB PO; +KRIL1000 PO; +NIFE1TAB52; +PEPE50CA PO
== END ==
LOC: M WUC 14:58
PROVIDERS: ATTEND Physician Assistant
DX: S90.01XA Contusion of right ankle, initial encounter (principal); S90.31XA Contusion of right foot, initial encounter; S60.211A Contusion of right wrist, initial encounter

== ENCOUNTER → 2022-11-04 | Outpatient (REF) | payer MEDICARE | LOC: M SFHCADAM 14:07 | PROVIDERS: ATTEND Family Medicine | DX: I11.9 Hypertensive heart disease without heart failure (principal); E78.2 Mixed hyperlipidemia; E03.9 Hypothyroidism, unspecified; E04.1 Nontoxic single thyroid nodule; I61.8 Other nontraumatic intracerebral hemorrhage; E55.9 Vitamin D deficiency, unspecified ==

== ENCOUNTER → 2022-11-05 | Outpatient (CLI) | payer MEDICARE ==
[2022-11-05 10:37] LABS: HEMATOCRIT 47.8 % (36.0-47.0); MEAN CORPUSCULAR HEMOGLOBIN 29.6 pg (27.0-33.0); MEAN CORPUSCULAR HGB CONC 31.4 g/dl (32.0-36.5); MEAN CORPUSCULAR VOLUME 94.5 fl (80.0-96.0); PLATELET COUNT, AUTOMATED 243 10^3/uL (150-450); RED BLOOD COUNT 5.06 10^6/uL (4.00-5.40); WHITE BLOOD COUNT 6.8 10^3/uL (4.0-10.0)
[2022-11-05 10:49] LABS: ALBUMIN 3.9 G/DL (3.2-5.2); ALKALINE PHOSPHATASE 85 U/L (46-116); ALT/SGPT < 9 U/L (7.0-40); AST/SGOT 23 U/L (<34); BLOOD UREA NITROGEN 22 MG/DL (9-23); CARBON DIOXIDE LEVEL 32 MMOL/L (20-31); CHLORIDE LEVEL 106 MMOL/L (98-107); CHOLESTEROL LEVEL 224 MG/DL (<200); CHOLESTEROL RISK RATIO 3.34 (<5); CREATININE FOR GFR 0.67 MG/DL (0.55-1.30); GLOMERULAR FILTRATION RATE > 60.0 (>32); GLUCOSE, FASTING 90 MG/DL (74-106); HDL CHOLESTEROL 66.9 MG/DL (>40); LDL CHOLESTEROL 131.3 MG/DL (<100); NON-HDL-C 157.1 MG/DL; POTASSIUM SERUM 4.4 MMOL/L (3.5-5.1); SODIUM LEVEL 141 MMOL/L (136-145); TOTAL PROTEIN 6.9 G/DL (5.7-8.2); TRIGLYCERIDES LEVEL 129 MG/DL (<150)
[2022-11-05 10:53] LABS: FREE T4 0.97 NG/DL (0.89-1.76); TOTAL 25(OH) VITAMIN D 56.6 NG/ML (20.0-100.0)
== END ==
LOC: M PLALAB 08:44
PROVIDERS: ATTEND Family Medicine
DX: I11.9 Hypertensive heart disease without heart failure (principal); E78.2 Mixed hyperlipidemia; E03.9 Hypothyroidism, unspecified; E04.1 Nontoxic single thyroid nodule; I61.8 Other nontraumatic intracerebral hemorrhage; E55.9 Vitamin D deficiency, unspecified; Z79.899 Other long term (current) drug therapy

== ENCOUNTER → 2022-11-13 | Outpatient (CLI) | payer MEDICARE | LOC: M RAD 10:19 | PROVIDERS: ATTEND Physician Assistant | DX: S50.01XA Contusion of right elbow, initial encounter (principal); S90.32XA Contusion of left foot, initial encounter ==

== ENCOUNTER → 2023-04-26 | Outpatient (CLI) | payer MEDICARE ==
[~2023-04-26] MED LIST changes: +MECL-209 PO; -MECL1TAB31 PO
[2023-04-26 12:31] LABS: HEMATOCRIT 45.5 % (36.0-47.0); HEMOGLOBIN 14.3 g/dl (12.0-15.5); MEAN CORPUSCULAR HGB CONC 31.4 g/dl (32.0-36.5); MEAN CORPUSCULAR VOLUME 95.6 fl (80.0-96.0); PLATELET COUNT, AUTOMATED 259 10^3/uL (150-450); RED BLOOD COUNT 4.76 10^6/uL (4.00-5.40); WHITE BLOOD COUNT 6.7 10^3/uL (4.0-10.0)
[2023-04-26 13:05] LABS: ALBUMIN 3.7 G/DL (3.2-5.2); ALKALINE PHOSPHATASE 60 U/L (46-116); ALT/SGPT 14 U/L (7.0-40); AST/SGOT 14 U/L (<34); BILIRUBIN,TOTAL 1.1 MG/DL (0.3-1.2); BLOOD UREA NITROGEN 19 MG/DL (9-23); CALCIUM LEVEL 10.2 MG/DL (8.3-10.6); CARBON DIOXIDE LEVEL 31 MMOL/L (20-31); CHLORIDE LEVEL 105 MMOL/L (98-107); CHOLESTEROL LEVEL 205 MG/DL (<200); CHOLESTEROL RISK RATIO 3.53 (<5); CREATININE FOR GFR 0.82 MG/DL (0.55-1.30); GLOMERULAR FILTRATION RATE > 60.0 (>32); GLUCOSE, FASTING 87 MG/DL (74-106); LDL CHOLESTEROL 113.6 MG/DL (<100); POTASSIUM SERUM 4.2 MMOL/L (3.5-5.1); SODIUM LEVEL 145 MMOL/L (136-145); THYROID STIMULATING HORMONE 3.684 uIU/ML (0.55-4.78); TOTAL PROTEIN 6.6 G/DL (5.7-8.2); TRIGLYCERIDES LEVEL 167 MG/DL (<150)
[2023-04-26 13:07] LABS: FREE T4 1.04 NG/DL (0.89-1.76)
== END ==
LOC: M PLALAB 08:12
PROVIDERS: ATTEND Family Medicine
DX: I61.8 Other nontraumatic intracerebral hemorrhage (principal); M77.8 Other enthesopathies, not elsewhere classified; E78.2 Mixed hyperlipidemia; I11.9 Hypertensive heart disease without heart failure; E03.9 Hypothyroidism, unspecified

== ENCOUNTER 2023-07-14 09:35 | Day surgery (SDC) | payer MEDICARE ==
[~2023-07-14] VITALS: Ht 152.4 cm; Wt 48.2 kg
[~2023-07-14 09:35] MED LIST changes: +B-12100011 SL; +BORO1POW XX; +CALC500C16 PO; +CHOL125C6 PO; +CO Q10CA PO; +GRAP50CA3 PO; +LIDO5OIN19 EX; +MILK175C6 PO; +POTA595T8 PO; +QC F0.52 PO; +ZINC PO; +[UNRECOGNIZED DRUG - CODE] IV; +[UNRECOGNIZED DRUG - CODE] XX; +[UNRECOGNIZED DRUG - OTHER]; +[UNRECOGNIZED DRUG - OTHER] PO
[2023-07-14] MEDS: NS 1,000 ML IV ONE (09:54)
[2023-07-14] MEDS ORDERED: propofoL 200 MG/20 ML VIAL As Ordered ONE (09:55)
[2023-07-14 11:46] VITALS: BP 130/91; TEMP 97.7; O2SAT 98
== END 2023-07-14 12:05 | disposition home or self-care (01) ==
LOC: M OPP 09:35
PROVIDERS: ATTEND Surgery
DX: Z86.010 Personal history of colon polyps (principal); Z80.0 Family history of malignant neoplasm of digestive organs; K57.30 Diverticulosis of large intestine without perforation or abscess without bleeding; K44.9 Diaphragmatic hernia without obstruction or gangrene; K29.70 Gastritis, unspecified, without bleeding; K22.89 Other specified disease of esophagus; Z79.1 Long term (current) use of non-steroidal anti-inflammatories (NSAID); Z79.51 Long term (current) use of inhaled steroids; Z79.890 Hormone replacement therapy; Z79.899 Other long term (current) drug therapy; Z88.1 Allergy status to other antibiotic agents; Z88.5 Allergy status to narcotic agent; Z88.8 Allergy status to other drugs, medicaments and biological substances; Z91.018 Allergy to other foods; Z91.041 Radiographic dye allergy status; Z91.048 Other nonmedicinal substance allergy status
CPT/HCPCS: 43239; 88305; G0105

== ENCOUNTER → 2023-08-11 | Outpatient (CLI) | payer MEDICARE | LOC: M ADAMS 15:04 | PROVIDERS: ATTEND Family Medicine | DX: R63.4 Abnormal weight loss (principal) ==

== ENCOUNTER → 2023-08-11 | Outpatient (REF) | payer MEDICARE ==
[2023-08-11 18:11] LABS: BASO # 0.1 10^3/uL (0.0-0.2); BASO % 0.7 % (0.0-1.0); EOS # 0.2 10^3/uL (0.0-0.5); EOS % 1.8 % (0.0-3.0); HEMOGLOBIN 13.4 g/dl (12.0-15.5); LYMPH # 1.9 10^3/uL (1.5-5.0); MEAN CORPUSCULAR HEMOGLOBIN 30.5 pg (27.0-33.0); MEAN CORPUSCULAR HGB CONC 31.9 g/dl (32.0-36.5); MEAN CORPUSCULAR VOLUME 95.5 fl (80.0-96.0); MONO # 0.6 10^3/uL (0.0-0.8); MONO % 6.4 % (2.0-8.0); NEUTROPHILS % 68.8 % (36.0-66.0); PLATELET COUNT, AUTOMATED 235 10^3/uL (150-450); WHITE BLOOD COUNT 8.7 10^3/uL (4.0-10.0)
[2023-08-11 18:26] LABS: HEMOGLOBIN A1c 5.7 % (4.0-6.0)
[2023-08-11 18:34] LABS: C REACTIVE PROTEIN QUANTITATIV < 0.40 MG/DL (<1.0)
[2023-08-11 18:36] LABS: ALBUMIN 3.4 G/DL (3.2-5.2); ALKALINE PHOSPHATASE 69 U/L (46-116); ALT/SGPT 11 U/L (7.0-40); AST/SGOT 15 U/L (<34); BILIRUBIN,TOTAL 0.7 MG/DL (0.3-1.2); BLOOD UREA NITROGEN 27 MG/DL (9-23); CALCIUM LEVEL 9.3 MG/DL (8.3-10.6); CARBON DIOXIDE LEVEL 30 MMOL/L (20-31); CHLORIDE LEVEL 105 MMOL/L (98-107); CHOLESTEROL LEVEL 177 MG/DL (<200); CHOLESTEROL RISK RATIO 3.86 (<5); CREATININE FOR GFR 0.87 MG/DL (0.55-1.30); GLOMERULAR FILTRATION RATE > 60.0 (>32); GLUCOSE, FASTING 142 MG/DL (74-106); HDL CHOLESTEROL 45.8 MG/DL (>40); LDL CHOLESTEROL 72.4 MG/DL (<100); NON-HDL-C 131.2 MG/DL; POTASSIUM SERUM 3.7 MMOL/L (3.5-5.1); SODIUM LEVEL 137 MMOL/L (136-145); TOTAL PROTEIN 6.3 G/DL (5.7-8.2); TRIGLYCERIDES LEVEL 294 MG/DL (<150)
[2023-08-11 18:37] LABS: FREE T4 0.89 NG/DL (0.89-1.76); THYROID STIMULATING HORMONE 2.312 uIU/ML (0.55-4.78)
== END ==
LOC: M SFHCADAM 14:52
PROVIDERS: ATTEND Family Medicine
DX: I10 Essential (primary) hypertension (principal); E78.2 Mixed hyperlipidemia; E03.9 Hypothyroidism, unspecified; R59.0 Localized enlarged lymph nodes; D34 Benign neoplasm of thyroid gland; R63.4 Abnormal weight loss; Z79.899 Other long term (current) drug therapy

== ENCOUNTER 2023-12-02 11:33 | Observation (INO) | payer MEDICARE ==
[~2023-12-02] VITALS: Ht 154.9 cm; Wt 46.9 kg
[2023-12-02 06:40] VITALS: BP 210/98; TEMP 98.3; O2SAT 97
[~2023-12-02 11:33] MED LIST changes: -LIDO5OIN19 EX; +LIDO5OIN19 TOP; -NIFE1TAB52; +NIFE1TAB52 PO
[2023-12-02] MEDS: NS 1,000 ML IV SCH (12:35)
[2023-12-02 12:42] LABS: BASO # 0.1 10^3/uL (0.0-0.2); BASO % 1.1 % (0.0-1.0); EOS # 0.1 10^3/uL (0.0-0.5); EOS % 1.7 % (0.0-3.0); HEMATOCRIT 46.1 % (36.0-47.0); LYMPH # 1.6 10^3/uL (1.5-5.0); LYMPH % 25.7 % (24.0-44.0); MEAN CORPUSCULAR HGB CONC 32.5 g/dl (32.0-36.5); MEAN CORPUSCULAR VOLUME 92.2 fl (80.0-96.0); MONO # 0.6 10^3/uL (0.0-0.8); MONO % 9.7 % (2.0-8.0); NEUTROPHILS # 3.9 10^3/uL (1.5-8.5); NEUTROPHILS % 61.5 % (36.0-66.0); PLATELET COUNT, AUTOMATED 248 10^3/uL (150-450); WHITE BLOOD COUNT 6.4 10^3/uL (4.0-10.0)
[2023-12-02 13:04] LABS: INR 0.99; PROTHROMBIN TIME 12.8 SECONDS (12.5-14.5)
[2023-12-02 13:10] LABS: BLOOD UREA NITROGEN 23 MG/DL (9-23); CALCIUM LEVEL 9.6 MG/DL (8.3-10.6); CARBON DIOXIDE LEVEL 24 MMOL/L (20-31); CHLORIDE LEVEL 106 MMOL/L (98-107); CREATININE FOR GFR 0.75 MG/DL (0.55-1.30); GLOMERULAR FILTRATION RATE > 60.0 (>32); GLUCOSE, FASTING 98 MG/DL (74-106); SODIUM LEVEL 139 MMOL/L (136-145)
[2023-12-02 13:41] LABS: CK-MB VALUE MASS 1.6 NG/ML (<3.6)
[2023-12-02 13:42] LABS: CPK CREATINE PHOSPHOKINASE 76 U/L (34-145)
[2023-12-02] MEDS ORDERED: OXAZEPAM 15MG CAP PO PRN (17:00)
[2023-12-02] MEDS ORDERED: [UNRECOGNIZED DRUG - CODE] PO (17:51)
[2023-12-02] MEDS ORDERED: CALC500C32 PO (17:51)
[2023-12-02] MEDS ORDERED: HOME MED LIST COMPLETE! XX SCH (17:55)
[2023-12-02 18:40] VITALS: BP 210/98; TEMP 98.3; O2SAT 97
[2023-12-02 18:50] VITALS: BP 204/98
[2023-12-02 20:50] VITALS: BP 150/86
[2023-12-02] MEDS: ATORVASTATIN 10 MG TAB PO SCH (20:51)
[2023-12-02 23:47] VITALS: BP 140/82; TEMP 97.9; O2SAT 98
[2023-12-03 03:42] VITALS: BP 156/88; TEMP 97.6; O2SAT 94
[2023-12-03 05:40] LABS: HEMATOCRIT 40.1 % (36.0-47.0); HEMOGLOBIN 13.1 g/dl (12.0-15.5); MEAN CORPUSCULAR HEMOGLOBIN 30.2 pg (27.0-33.0); MEAN CORPUSCULAR HGB CONC 32.7 g/dl (32.0-36.5); MEAN CORPUSCULAR VOLUME 92.4 fl (80.0-96.0); PLATELET COUNT, AUTOMATED 221 10^3/uL (150-450); RED BLOOD COUNT 4.34 10^6/uL (4.00-5.40); WHITE BLOOD COUNT 7.4 10^3/uL (4.0-10.0)
[2023-12-03] MEDS: THYROID 30MG TAB PO SCH (06:07)
[2023-12-03 06:09] LABS: BLOOD UREA NITROGEN 17 MG/DL (9-23); CALCIUM LEVEL 8.7 MG/DL (8.3-10.6); CARBON DIOXIDE LEVEL 27 MMOL/L (20-31); CHLORIDE LEVEL 111 MMOL/L (98-107); CREATININE FOR GFR 0.72 MG/DL (0.55-1.30); GLOMERULAR FILTRATION RATE > 60.0 (>32); GLUCOSE, FASTING 87 MG/DL (74-106); POTASSIUM SERUM 3.7 MMOL/L (3.5-5.1); SODIUM LEVEL 142 MMOL/L (136-145)
[2023-12-03 08:00] VITALS: BP 140/82; TEMP 97.4; O2SAT 97
[2023-12-03] MEDS: NIFEdipine 30MG XL TAB PO SCH (08:21)
[2023-12-03] MEDS: ASPIRIN 81MG ENTERIC TABLET PO SCH (08:21)
[2023-12-03] MEDS ORDERED: ATOR1TAB19 PO (08:58)
[2023-12-03] MEDS ORDERED: ASPI81TAEC PO (08:58)
== END 2023-12-03 12:15 | disposition home or self-care (01) ==
LOC: M ED 11:33 → M ED INP 11:34 → INTOOBSV 16:56 → M ED INP 16:56 → UNDOADMOB 16:56 → M ED INP 18:50 → M PCU 18:50 → UNDODISOB 12-03 12:15
PROVIDERS: ADMIT Family Medicine; ATTEND Family Medicine
DX: I63.412 Cerebral infarction due to embolism of left middle cerebral artery (principal); E78.5 Hyperlipidemia, unspecified; E55.9 Vitamin D deficiency, unspecified; E03.9 Hypothyroidism, unspecified; K76.0 Fatty (change of) liver, not elsewhere classified; Z88.1 Allergy status to other antibiotic agents; Z88.8 Allergy status to other drugs, medicaments and biological substances; Z91.018 Allergy to other foods; Z79.899 Other long term (current) drug therapy
CPT/HCPCS: 36415; 70450; 70544; 70547; 70551; 71045; 80048; 81001; 82550; 82553; 84484; 85025; 85027; 85610; 85730; 86850; 86900; 86901; 93005; 94760; 96360; 96361; 97161; 99291; G0378

== ENCOUNTER → 2024-01-05 | Outpatient (CLI) | payer MEDICARE ==
[~2024-01-05] MED LIST changes: +ASPI81TAEC PO; +ATOR1TAB19 PO; +CALC500C32 PO; +[UNRECOGNIZED DRUG - CODE] PO
[2024-01-05 10:34] LABS: HEMATOCRIT 42.8 % (36.0-47.0); HEMOGLOBIN 13.5 g/dl (12.0-15.5); MEAN CORPUSCULAR HEMOGLOBIN 30.1 pg (27.0-33.0); MEAN CORPUSCULAR HGB CONC 31.5 g/dl (32.0-36.5); MEAN CORPUSCULAR VOLUME 95.5 fl (80.0-96.0); PLATELET COUNT, AUTOMATED 248 10^3/uL (150-450); RED BLOOD COUNT 4.48 10^6/uL (4.00-5.40); WHITE BLOOD COUNT 7.3 10^3/uL (4.0-10.0)
[2024-01-05 10:40] LABS: ALBUMIN 3.6 G/DL (3.2-5.2); ALKALINE PHOSPHATASE 73 U/L (46-116); ALT/SGPT 18 U/L (7.0-40); AST/SGOT 14 U/L (<34); BILIRUBIN,TOTAL 1.3 MG/DL (0.3-1.2); BLOOD UREA NITROGEN 24 MG/DL (9-23); CALCIUM LEVEL 9.6 MG/DL (8.3-10.6); CARBON DIOXIDE LEVEL 31 MMOL/L (20-31); CHLORIDE LEVEL 106 MMOL/L (98-107); CHOLESTEROL LEVEL 141 MG/DL (<200); CHOLESTEROL RISK RATIO 2.37 (<5); CREATININE FOR GFR 0.79 MG/DL (0.55-1.30); GLOMERULAR FILTRATION RATE > 60.0 (>32); GLUCOSE, FASTING 94 MG/DL (74-106); HDL CHOLESTEROL 59.3 MG/DL (>40); LDL CHOLESTEROL 60.7 MG/DL (<100); MAGNESIUM LEVEL 2.1 MG/DL (1.8-2.4); NON-HDL-C 81.7 MG/DL; POTASSIUM SERUM 3.7 MMOL/L (3.5-5.1); SODIUM LEVEL 142 MMOL/L (136-145); TOTAL PROTEIN 6.4 G/DL (5.7-8.2); TRIGLYCERIDES LEVEL 105 MG/DL (<150)
[2024-01-05 10:41] LABS: FREE T4 1.09 NG/DL (0.89-1.76); THYROID STIMULATING HORMONE 2.537 uIU/ML (0.55-4.78)
== END ==
LOC: M PLALAB 08:10
PROVIDERS: ATTEND Family Medicine
DX: E04.2 Nontoxic multinodular goiter (principal); E78.2 Mixed hyperlipidemia; I11.9 Hypertensive heart disease without heart failure; Z86.73 Personal history of transient ischemic attack (TIA), and cerebral infarction without residual deficits

== ENCOUNTER 2024-02-04 18:34 | Emergency (ER) | payer MEDICARE ==
[~2024-02-04] VITALS: Ht 154.9 cm; Wt 48.6 kg
[2024-02-04 21:32] LABS: HEMATOCRIT 42.4 % (36.0-47.0); HEMOGLOBIN 13.6 g/dl (12.0-15.5); MEAN CORPUSCULAR HEMOGLOBIN 30.3 pg (27.0-33.0); MEAN CORPUSCULAR HGB CONC 32.1 g/dl (32.0-36.5); MEAN CORPUSCULAR VOLUME 94.4 fl (80.0-96.0); PLATELET COUNT, AUTOMATED 234 10^3/uL (150-450); RED BLOOD COUNT 4.49 10^6/uL (4.00-5.40); WHITE BLOOD COUNT 8.7 10^3/uL (4.0-10.0)
[2024-02-04] MEDS ORDERED: EQL0.65S NARES (21:52)
[2024-02-04] MEDS: SODIUM CHLORIDE 0.9% NASAL GEL 15GM (AYR) STA (22:49)
[2024-02-04 22:52] VITALS: BP 159/92; TEMP 97.1; O2SAT 97
== END 2024-02-04 22:54 | disposition home or self-care (01) ==
LOC: M ED 18:34
DX: R04.0 Epistaxis (principal); I10 Essential (primary) hypertension; E78.5 Hyperlipidemia, unspecified; E03.9 Hypothyroidism, unspecified; E55.9 Vitamin D deficiency, unspecified; M48.061 Spinal stenosis, lumbar region without neurogenic claudication; Z86.79 Personal history of other diseases of the circulatory system; Z88.6 Allergy status to analgesic agent; Z88.5 Allergy status to narcotic agent; Z88.1 Allergy status to other antibiotic agents; Z88.8 Allergy status to other drugs, medicaments and biological substances; Z91.041 Radiographic dye allergy status; Z79.82 Long term (current) use of aspirin; Z79.02 Long term (current) use of antithrombotics/antiplatelets; Z79.899 Other long term (current) drug therapy

== ENCOUNTER → 2024-02-20 | Outpatient (CLI) | payer MEDICARE ==
[~2024-02-20] MED LIST changes: +EQL0.65S NARES
[2024-02-20 12:27] LABS: PLATELET COUNT, AUTOMATED 233 10^3/uL (150-450)
[2024-02-20 12:45] LABS: INR 1.04; PARTIAL THROMBOPLASTIN TIME 29.3 SECONDS (24.8-34.2); PROTHROMBIN TIME 13.3 SECONDS (12.5-14.5)
== END ==
LOC: M PLALAB 11:17
PROVIDERS: ATTEND Physician Assistant Surgical
DX: Z01.818 Encounter for other preprocedural examination (principal)

== ENCOUNTER → 2024-03-15 | Outpatient (REF) | payer MEDICARE ==
[2024-03-15 14:33] LABS: HEMATOCRIT 43.8 % (36.0-47.0); MEAN CORPUSCULAR HEMOGLOBIN 30.7 pg (27.0-33.0); MEAN CORPUSCULAR VOLUME 96.1 fl (80.0-96.0); PLATELET COUNT, AUTOMATED 259 10^3/uL (150-450); RED BLOOD COUNT 4.56 10^6/uL (4.00-5.40); WHITE BLOOD COUNT 7.7 10^3/uL (4.0-10.0)
[2024-03-15 14:54] LABS: C REACTIVE PROTEIN QUANTITATIV < 0.40 MG/DL (<1.0)
[2024-03-15 14:56] LABS: ALBUMIN 3.5 G/DL (3.2-5.2); ALKALINE PHOSPHATASE 67 U/L (35-104); ALT/SGPT 14 U/L (7.0-40); AST/SGOT 9 U/L (<34); BILIRUBIN,TOTAL 1.4 MG/DL (0.3-1.2); BLOOD UREA NITROGEN 24 MG/DL (9-23); CALCIUM LEVEL 9.7 MG/DL (8.3-10.6); CARBON DIOXIDE LEVEL 30 MMOL/L (20-31); CHLORIDE LEVEL 106 MMOL/L (98-107); CREATININE FOR GFR 0.74 MG/DL (0.55-1.30); GLOMERULAR FILTRATION RATE > 60.0 (>32); GLUCOSE, FASTING 101 MG/DL (74-106); POTASSIUM SERUM 4.3 MMOL/L (3.5-5.1); SODIUM LEVEL 140 MMOL/L (136-145); TOTAL PROTEIN 6.9 G/DL (5.7-8.2)
[2024-03-15 14:57] LABS: FREE T4 1.14 NG/DL (0.89-1.76)
[2024-03-15 14:58] LABS: THYROID STIMULATING HORMONE 1.232 uIU/ML (0.55-4.78)
[2024-03-15 15:22] LABS: HEMOGLOBIN A1c 5.9 % (4.0-6.0)
== END ==
LOC: M SFHCADAM 10:35
PROVIDERS: ATTEND Family Medicine
DX: I63.81 Other cerebral infarction due to occlusion or stenosis of small artery (principal); I11.9 Hypertensive heart disease without heart failure; M83.8 Other adult osteomalacia; E04.2 Nontoxic multinodular goiter; R63.4 Abnormal weight loss; Z79.899 Other long term (current) drug therapy

== ENCOUNTER → 2024-03-30 | Outpatient (CLI) | payer MEDICARE | LOC: M RAD 07:06 | PROVIDERS: ATTEND Family Medicine | DX: R10.32 Left lower quadrant pain (principal); R05.3 Chronic cough ==

== ENCOUNTER → 2024-05-24 | Outpatient (CLI) | payer MEDICARE ==
[~2024-05-24] MED LIST changes: -POTA540T PO; +POTA540T5 PO
== END ==
LOC: M PLARAD 09:31
PROVIDERS: ATTEND Family Medicine
DX: M92.62 Juvenile osteochondrosis of tarsus, left ankle (principal); I63.81 Other cerebral infarction due to occlusion or stenosis of small artery; M48.07 Spinal stenosis, lumbosacral region

== ENCOUNTER → 2024-06-12 | Outpatient (CLI) | payer MEDICARE ==
[2024-06-12 10:49] LABS: HEMATOCRIT 45.9 % (36.0-47.0); HEMOGLOBIN 14.3 g/dl (12.0-15.5); MEAN CORPUSCULAR HEMOGLOBIN 29.5 pg (27.0-33.0); MEAN CORPUSCULAR HGB CONC 31.2 g/dl (32.0-36.5); MEAN CORPUSCULAR VOLUME 94.6 fl (80.0-96.0); PLATELET COUNT, AUTOMATED 237 10^3/uL (150-450); RED BLOOD COUNT 4.85 10^6/uL (4.00-5.40); WHITE BLOOD COUNT 6.4 10^3/uL (4.0-10.0)
[2024-06-12 11:20] LABS: ALBUMIN 3.5 G/DL (3.2-5.2); ALKALINE PHOSPHATASE 75 U/L (35-104); ALT/SGPT 13 U/L (7.0-40); AST/SGOT 13 U/L (<34); BILIRUBIN,TOTAL 1.1 MG/DL (0.3-1.2); BLOOD UREA NITROGEN 24 MG/DL (9-23); C REACTIVE PROTEIN QUANTITATIV < 0.50 MG/DL (<1.0); CALCIUM LEVEL 9.4 MG/DL (8.3-10.6); CARBON DIOXIDE LEVEL 32 MMOL/L (20-31); CHLORIDE LEVEL 105 MMOL/L (98-107); CREATININE FOR GFR 0.79 MG/DL (0.55-1.30); GLOMERULAR FILTRATION RATE > 60.0 (>32); GLUCOSE, FASTING 98 MG/DL (74-106); POTASSIUM SERUM 4.3 MMOL/L (3.5-5.1); SODIUM LEVEL 145 MMOL/L (136-145); TOTAL PROTEIN 6.4 G/DL (5.7-8.2)
[2024-06-12 11:24] LABS: FREE T4 1.06 NG/DL (0.89-1.76); THYROID STIMULATING HORMONE 2.292 uIU/ML (0.55-4.78)
== END ==
LOC: M PLALAB 08:18
PROVIDERS: ATTEND Family Medicine
DX: M81.0 Age-related osteoporosis without current pathological fracture (principal); R63.4 Abnormal weight loss; E04.2 Nontoxic multinodular goiter; I63.81 Other cerebral infarction due to occlusion or stenosis of small artery; I11.9 Hypertensive heart disease without heart failure

== ENCOUNTER → 2024-06-29 | Outpatient (CLI) | payer MEDICARE | LOC: M WUC 14:39 | PROVIDERS: ATTEND Nurse Practitioner Family | DX: M54.2 Cervicalgia (principal); M47.892 Other spondylosis, cervical region ==

== ENCOUNTER 2024-07-15 11:44 | Observation (INO) | payer MEDICARE ==
[~2024-07-15] VITALS: Ht 154.9 cm; Wt 55.2 kg
[2024-07-15 12:19] LABS: BASO # 0.1 10^3/uL (0.0-0.2); EOS # 0.2 10^3/uL (0.0-0.5); EOS % 2.7 % (0.0-3.0); HEMATOCRIT 44.5 % (36.0-47.0); HEMOGLOBIN 14.3 g/dl (12.0-15.5); LYMPH # 1.6 10^3/uL (1.5-5.0); LYMPH % 22.3 % (24.0-44.0); MEAN CORPUSCULAR HEMOGLOBIN 30.2 pg (27.0-33.0); MEAN CORPUSCULAR HGB CONC 32.1 g/dl (32.0-36.5); MEAN CORPUSCULAR VOLUME 94.1 fl (80.0-96.0); MONO # 0.5 10^3/uL (0.0-0.8); MONO % 7.7 % (2.0-8.0); NEUTROPHILS # 4.6 10^3/uL (1.5-8.5); PLATELET COUNT, AUTOMATED 253 10^3/uL (150-450); RED BLOOD COUNT 4.73 10^6/uL (4.00-5.40)
[2024-07-15 12:38] LABS: INR 0.91; PARTIAL THROMBOPLASTIN TIME 29.2 SECONDS (24.8-34.2); PROTHROMBIN TIME 12.6 SECONDS (12.5-14.5)
[2024-07-15 12:51] LABS: BLOOD UREA NITROGEN 21 MG/DL (9-23); CALCIUM LEVEL 9.2 MG/DL (8.3-10.6); CARBON DIOXIDE LEVEL 29 MMOL/L (20-31); CHLORIDE LEVEL 106 MMOL/L (98-107); CREATININE FOR GFR 0.72 MG/DL (0.55-1.30); GLOMERULAR FILTRATION RATE > 60.0 (>32); GLUCOSE, FASTING 104 MG/DL (74-106); POTASSIUM SERUM 4.6 MMOL/L (3.5-5.1); SODIUM LEVEL 143 MMOL/L (136-145)
[2024-07-15] MEDS ORDERED: ACETAMINOPHEN 325 MG TAB PO PRN (16:20)
[2024-07-15] MEDS ORDERED: ATOR1TAB19 PO (17:11)
[2024-07-15] MEDS ORDERED: ECOT81TA5 PO (17:11)
[2024-07-15] MEDS ORDERED: HOME MED LIST COMPLETE! XX SCH (17:15)
[2024-07-15 21:10] VITALS: BP 168/92; TEMP 98.7; O2SAT 96
[2024-07-15] MEDS: ATORVASTATIN 10 MG TAB PO SCH (22:52)
[2024-07-15] MEDS: HEPARIN SOD (PORCINE) 5000UNITS/ML 1ML VIAL/SYRINGE SC SCH (22:52)
[2024-07-15 23:08] VITALS: BP 154/87; TEMP 98; O2SAT 96
[2024-07-16 03:44] VITALS: BP 114/71; TEMP 97.9; O2SAT 98
[2024-07-16 05:21] VITALS: BP 145/94
[2024-07-16] MEDS: NIFEdipine 10 MG CAP PO ONE (05:21)
[2024-07-16] MEDS: THYROID 30MG TAB PO SCH (07:14)
[2024-07-16 07:25] LABS: CHOLESTEROL RISK RATIO 2.36 (<5); HDL CHOLESTEROL 59.7 MG/DL (>40); LDL CHOLESTEROL 61.1 MG/DL (<100); NON-HDL-C 81.3 MG/DL
[2024-07-16 08:47] VITALS: BP 111/76; TEMP 97.6; O2SAT 96
[2024-07-16] MEDS: ASPIRIN 81MG ENTERIC TABLET PO SCH (10:56)
== END 2024-07-16 11:20 | disposition home or self-care (01) ==
LOC: M ED 11:44 → EDBD 11:44 → M ED INP 11:45 → M PCU 21:10
PROVIDERS: ADMIT Student in an Organized Health Care Education/Training Program; ATTEND Student in an Organized Health Care Education/Training Program
DX: G45.9 Transient cerebral ischemic attack, unspecified (principal); H53.8 Other visual disturbances; R26.9 Unspecified abnormalities of gait and mobility; Z79.82 Long term (current) use of aspirin; Z79.899 Other long term (current) drug therapy
CPT/HCPCS: 36415; 70450; 70544; 70547; 70551; 71045; 80047; 80048; 80061; 85025; 85610; 85730; 86850; 86900; 86901; 93005; 93041; 94760; 97161; 99285; G0378

== ENCOUNTER → 2024-07-27 | Outpatient (CLI) | payer MEDICARE ==
[~2024-07-27] MED LIST changes: +ECOT81TA5 PO
== END ==
LOC: M ADAMS 14:31
PROVIDERS: ATTEND Family Medicine
DX: S80.01XA Contusion of right knee, initial encounter (principal); Y93.9 Activity, unspecified; Y92.9 Unspecified place or not applicable

== ENCOUNTER → 2024-08-15 | Outpatient (CLI) | payer MEDICARE | LOC: M PLAIMG 10:59 | PROVIDERS: ATTEND Family Medicine | DX: M47.814 Spondylosis without myelopathy or radiculopathy, thoracic region (principal) ==

== ENCOUNTER → 2024-09-17 | Outpatient (CLI) | payer MEDICARE | LOC: M WUC 09:50 | PROVIDERS: ATTEND Nurse Practitioner Family | DX: R07.82 Intercostal pain (principal); Z91.81 History of falling ==

== ENCOUNTER → 2024-09-25 | Outpatient (CLI) | payer MEDICARE ==
[2024-09-25 13:36] LABS: TOTAL 25(OH) VITAMIN D 58.3 NG/ML (20.0-100.0)
[2024-09-25 13:40] LABS: ALBUMIN 3.8 G/DL (3.2-5.2); CALCIUM LEVEL 9.4 MG/DL (8.3-10.6); CREATININE FOR GFR 0.75 MG/DL (0.55-1.30); GLOMERULAR FILTRATION RATE 77.5 (>32); PHOSPHORUS LEVEL 4.2 MG/DL (2.4-5.1); POTASSIUM SERUM 4.6 MMOL/L (3.5-5.1)
== END ==
LOC: M PLALAB 10:27
PROVIDERS: ATTEND Family Medicine
DX: I11.9 Hypertensive heart disease without heart failure (principal); T45.2X1A Poisoning by vitamins, accidental (unintentional), initial encounter; Z79.899 Other long term (current) drug therapy

== ENCOUNTER → 2024-09-27 | Outpatient (CLI) | payer MEDICARE | LOC: M ADAMS 14:59 | PROVIDERS: ATTEND Family Medicine | DX: M47.816 Spondylosis without myelopathy or radiculopathy, lumbar region (principal); M54.50 Low back pain, unspecified ==

== ENCOUNTER → 2025-01-01 | Outpatient (CLI) | payer MEDICARE ==
[2025-01-01 11:36] LABS: PLATELET COUNT, AUTOMATED 277 10^3/uL (150-450)
[2025-01-01 12:11] LABS: TOTAL 25(OH) VITAMIN D 56.7 NG/ML (20.0-100.0)
[2025-01-01 12:12] LABS: ALT/SGPT 16.0 U/L (7.0-40); AST/SGOT 19.0 U/L (<34); CALCIUM LEVEL 9.6 MG/DL (8.3-10.6); CARBON DIOXIDE LEVEL 32.0 MMOL/L (20-31); CHLORIDE LEVEL 105.0 MMOL/L (98-107); CHOLESTEROL LEVEL 148.0 MG/DL (<200); CHOLESTEROL RISK RATIO 2.53 (<5); CREATININE FOR GFR 0.78 MG/DL (0.55-1.30); FREE T4 1.03 NG/DL (0.89-1.76); GLOMERULAR FILTRATION RATE 73.9 (>32); LDL CHOLESTEROL 65.0 MG/DL (<100); NON-HDL-C 89.6 MG/DL; POTASSIUM SERUM 4.2 MMOL/L (3.5-5.1); SODIUM LEVEL 147.0 MMOL/L (136-145); TRIGLYCERIDES LEVEL 123.0 MG/DL (<150)
== END ==
LOC: M PLALAB 08:16
PROVIDERS: ATTEND Family Medicine
DX: M81.0 Age-related osteoporosis without current pathological fracture (principal); R29.6 Repeated falls; I63.81 Other cerebral infarction due to occlusion or stenosis of small artery; I11.9 Hypertensive heart disease without heart failure; E04.2 Nontoxic multinodular goiter

== ENCOUNTER → 2025-02-13 | Outpatient (CLI) | payer MEDICARE | LOC: M WHC 14:51 | PROVIDERS: ATTEND Family Medicine | DX: M81.0 Age-related osteoporosis without current pathological fracture (principal) ==

== ENCOUNTER → 2025-02-22 | Outpatient (REF) | payer MEDICARE | LOC: M LAB REF 14:18 | DX: N39.0 Urinary tract infection, site not specified (principal) ==

== ENCOUNTER 2025-03-25 15:37 | Emergency (ER) | payer MEDICARE ==
[~2025-03-25] VITALS: Ht 152.4 cm; Wt 47.0 kg
[2025-03-25 18:58] VITALS: TEMP 98.7
[2025-03-25 20:15] VITALS: BP 160/98; O2SAT 97
== END 2025-03-25 20:26 | disposition home or self-care (01) ==
LOC: M ED 15:37
DX: R51.9 Headache, unspecified (principal); S00.83XA Contusion of other part of head, initial encounter; X58.XXXA Exposure to other specified factors, initial encounter; M50.30 Other cervical disc degeneration, unspecified cervical region; M43.12 Spondylolisthesis, cervical region; M43.13 Spondylolisthesis, cervicothoracic region; M43.14 Spondylolisthesis, thoracic region; K21.9 Gastro-esophageal reflux disease without esophagitis; K76.0 Fatty (change of) liver, not elsewhere classified; I10 Essential (primary) hypertension; F41.9 Anxiety disorder, unspecified; Z88.1 Allergy status to other antibiotic agents; Z91.041 Radiographic dye allergy status; Z91.09 Other allergy status, other than to drugs and biological substances; Z79.82 Long term (current) use of aspirin; Z79.899 Other long term (current) drug therapy; Z79.02 Long term (current) use of antithrombotics/antiplatelets; Y92.009 Unspecified place in unspecified non-institutional (private) residence as the place of occurrence of the external cause; Y93.89 Activity, other specified; Y99.9 Unspecified external cause status

== ENCOUNTER → 2025-04-24 | Outpatient (REF) | payer MEDICARE ==
[2025-04-24 14:58] LABS: PLATELET COUNT, AUTOMATED 288 10^3/uL (150-450)
[2025-04-24 15:22] LABS: ALT/SGPT 16.0 U/L (7.0-40); AST/SGOT 21.0 U/L (<34); CALCIUM LEVEL 9.6 MG/DL (8.3-10.6); CARBON DIOXIDE LEVEL 31.0 MMOL/L (20-31); CHLORIDE LEVEL 100.0 MMOL/L (98-107); CHOLESTEROL LEVEL 144.0 MG/DL (<200); CHOLESTEROL RISK RATIO 2.35 (<5); CREATININE FOR GFR 0.7 MG/DL (0.55-1.30); GLOMERULAR FILTRATION RATE 83.7 (>32); LDL CHOLESTEROL 53.6 MG/DL (<100); NON-HDL-C 82.8 MG/DL; POTASSIUM SERUM 5.2 MMOL/L (3.5-5.1); SODIUM LEVEL 139.0 MMOL/L (136-145); TRIGLYCERIDES LEVEL 146.0 MG/DL (<150)
[2025-04-24 15:26] LABS: TOTAL 25(OH) VITAMIN D 62.2 NG/ML (20.0-100.0)
[2025-04-24 15:29] LABS: FREE T4 1.09 NG/DL (0.89-1.76)
== END ==
LOC: M SFHCADAM 10:48
PROVIDERS: ATTEND Family Medicine
DX: E03.9 Hypothyroidism, unspecified (principal); I11.9 Hypertensive heart disease without heart failure; I63.81 Other cerebral infarction due to occlusion or stenosis of small artery; T45.2X1A Poisoning by vitamins, accidental (unintentional), initial encounter; M81.0 Age-related osteoporosis without current pathological fracture; Z86.73 Personal history of transient ischemic attack (TIA), and cerebral infarction without residual deficits

== ENCOUNTER → 2025-05-04 | Outpatient (REF) | payer MEDICARE | LOC: M LAB REF 17:29 | PROVIDERS: ATTEND Physician Assistant Medical | DX: R30.0 Dysuria (principal) ==